=== PATIENT | female | born 1940 | race Caucasian/White ===

== ENCOUNTER → 2016-04-15 | Outpatient (CLI) | payer OTHER ==
[~2016-04-15] MED LIST: ASPIRIN81 M2 PO; B COMPLEX1 EACH PO; B-12250 MCG PO; BROMELAINS500 MG PO; CALCIUM AND MA1 EACH PO; COQ-10100 MG PO; COUMADIN; DESONIDE CR. 1515 GM TOP; DESOWEN60 GM; DIGESTIVE ENZY1 EAC2 PO; DIGESTIVE ENZY1 EAC3 PO; DURAGESIC25 MCG/HR TP; ELIQUIS5 MG PO; ESSENTIAL WOMA1 EACH PO; ESTRACE; ESTRACE CREAM; FENTANYL PA12 MCG/HR TP; FENTANYL PA25 MCG/HR TRANSDERM; FISH OIL 1,001000 M2 PO; FLONASE 0.05%50 MCG NASAL; HYDROCODON-ACE1 EAC5 PO; IRON PO; LUTEIN20 MG PO; MACA ROOT PO; MAGOX 400400 MG PO; METOPROLOL SUCC50 MG PO; MUCINEX TA600 MG/TA2 PO; MULTIVITAMINS1 EAC7 PO; NORCO 10-325 T1 EACH PO; NORCO 5-325 TA1 EACH PO; OCUVITE TABLET1 EAC1 PO; PACERONE 200 M200 M1 PO; PRADAXA150 MG PO; PRESERVISION A1 EACH PO; PROLIA60 MG/1 ML SUBQ; PROSIGHT TABLE1 EACH PO; PROTONIX40 M1 PO; TIKOSYN0.25 MG; TOPROL XL25 MG PO; TRIAMCINOLONE A80 G2 TOP; TUMS PO; UNICOMPLEX M TA1 TA1 PO; VERAMYST10 GM NS; VITAMIN D2000 UNI1 PO; ZANTAC 150MG T150 MG PO; ZYRTEC10 M5 PO; [UNRECOGNIZED DRUG - OTHER] PO; [UNRECOGNIZED DRUG - OTHER] PO
--- NOTE | ~2016-04-15 | HPC ---
[facility] [address] [address] PAIN MANAGEMENT CONSULTATION Name: BLANKA CAMEJO Edu [id number] Admission: 04/15/16 Attend Phys: Rogelio Garza MD Discharge: Date of : 42 Report #: [id number] THIS REPORT FOR: //name// CC: Jadon Garza DATE OF SERVICE: 04/15/2016 Followup visit for chronic low back pain and lumbar radiculopathy. The patient returns to pain clinic for renewal of her medication. Most of her pain is in the axial spine in the area where she has had previous compression fractures at T10, T11 and T12. She has kyphotic changes there with angulation primarily at T11 and T12. She complains of increasing pain in that location. Pain in her legs is better. She has been managing with pain medication, which she says has really been quite effective over the last several months. Pain score is a 3, which is as low as it has been. She has been doing some physical therapy three times a week at [facility] where she lives and I think this is certainly playing a role in her improvement. Medications do cause some constipation, which she treats with a stool softener and laxative. Comorbidities include chronic atrial fibrillation and hyperlipidemia. ALLERGIES: Are lengthy and noted on the electronic medical record. PHYSICAL EXAMINATION: GENERAL: She is pleasant, affect is mildly depressed. VITAL SIGNS: Blood pressure is 135/88, heart rate is 80. MUSCULOSKELETAL: Examination of the spine reveals swelling over that spinous process of T12, but no redness. I believe this is likely due to pressure placed over the kyphotic angulation. She has no pain in her legs today. She walks easily without antalgic features and does not appear to be a fall risk. IMPRESSION: 1. Chronic back pain status post compression fractures at T11-T12 with kyphotic angulation. 2. Management of high risk medication. PLAN: I have renewed her fentanyl patches which she uses at q. 48 hours due to efficacy issues. She is on 25 mcg 15 patches per month. She uses hydrocodone 10/325, three times daily maximally for breakthrough pain. Important issues as far as safeguarding medication were reviewed in detail and [address] [address] PAIN MANAGEMENT CONSULTATION Name: BLANKA CAMEJO Room #: REG [facility].#: [id number] Admission: 04/15/16 Attend Phys: Rogelio Garza MD Discharge: Date of : 42 Report #: [id number] the terms of our opioid agreement were reviewed. Followup visit is scheduled in 3 months. <ELECTRONICALLY SIGNED> By: Rogelio Garza MD 05/16/16 1130 [id number] Rogelio Garza MD /nt
== END | disposition home or self-care (01) ==
LOC: PAIN 07:07
DX: M54.16 Radiculopathy, lumbar region (principal); G89.29 Other chronic pain; S22.080G Wedge compression fracture of T11-T12 vertebra, subsequent encounter for fracture with delayed healing; I48.91 Unspecified atrial fibrillation; E78.5 Hyperlipidemia, unspecified; Y93.89 Activity, other specified; Y92.89 Other specified places as the place of occurrence of the external cause; Y99.8 Other external cause status

== ENCOUNTER → 2016-07-20 | Outpatient (CLI) | payer OTHER ==
[~2016-07-20] VITALS: Ht 167.6 cm; Wt 59.4 kg
--- NOTE | ~2016-07-20 | HPC ---
[facility] [address] [place] [address] PAIN MANAGEMENT CONSULTATION Name: BASHIRBLANKA Edu Room #: REG MANDY Delgado#: [id number] Admission: 07/20/16 Attend Phys: Rogelio Garza MD Discharge: Date of : 42 Report #: [id number] THIS REPORT FOR: //name// CC: Jadon Garza DATE OF SERVICE: 07/20/2016 DATE OF REGISTRATION: 07/20/2016. REASON FOR VISIT: Followup visit for intractable low back pain with radiculopathy. SUBJECTIVE: I am seeing the patient today in followup. She has been on the same medications through our clinic for quite some time. She uses Duragesic 25 mcg patches, changed every 2 days and this has worked well for her. She has hydrocodone for breakthrough pain but uses it less frequently and still has quite a few pills remaining in her current bottle pill. She would like renewal of her fentanyl patches. Her only medication side effect is constipation, which treats aggressively. She avoids it with stool softeners and laxatives. She says her pain has been a little bit better here recently. It has only increased when she overdoes it. She understands when that occurs. She is also on board with exercise and understands that it can provide substantial improvements in her long-term pain. Comorbidities include atrial fib, hyperlipidemia, and cataracts. PHYSICAL EXAMINATION: GENERAL: She is a pleasant 76-year-old moves easily from sitting to standing position, ambulates only with mild discomfort. She has tenderness across her low back and mid back, but it is very mild. VITAL SIGNS: Blood pressure 154/82, heart rate is 72, BMI is 21.2. IMPRESSION: 1. Chronic back pain following compression fractures. 2. Kyphosis and spondylosis. 3. Management of high risk medication. DISCUSSION AND PLAN: We reviewed the CDC guidelines. I have reminded her of our opioid agreement and importance of safeguarding all medications. [facility] [address] [place] [address] PAIN MANAGEMENT CONSULTATION Name: BLANKA CAMEJO Room #: [facility].#: [id number] Admission: 07/20/16 Attend Phys: Rogelio Garza MD Discharge: Date of : 42 Report #: [id number] Medications were renewed under terms of that agreement. I plan to see her back in the clinic in 3 months. By: [id number] Rogelio Garza MD /nt
[2016-07-20 14:02] VITALS: BP 154/82
== END | disposition home or self-care (01) ==
LOC: PAIN
DX: M47.9 Spondylosis, unspecified (principal); M40.209 Unspecified kyphosis, site unspecified; G89.29 Other chronic pain

== ENCOUNTER → 2016-10-07 | Outpatient (CLI) | payer OTHER ==
[~2016-10-07] VITALS: Ht 167.6 cm; Wt 59.8 kg
[2016-10-07 14:38] VITALS: BP 157/59
== END ==
LOC: PAIN 07:15
DX: M54.5 Low back pain (principal); M47.896 Other spondylosis, lumbar region; Z79.899 Other long term (current) drug therapy; Z79.891 Long term (current) use of opiate analgesic

== ENCOUNTER → 2016-12-31 | Outpatient (CLI) | payer OTHER ==
[~2016-12-31] VITALS: Ht 170.2 cm; Wt 58.5 kg
[~2016-12-31] MED LIST changes: +DURAGESIC25 MCG/HR TRANSDERM
--- NOTE | ~2016-12-31 | HPC ---
[facility] [address] [address] PAIN MANAGEMENT CONSULTATION Name: BLANKA CAMEJO Edu Room #: REG [facility] Dylan.#: [id number] Admission: 12/31/16 Attend Phys: Rogelio Garza MD Discharge: Date of : 42 Report #: [id number] THIS REPORT FOR: //name// CC: Jadon Garza DATE OF SERVICE: 12/31/2016 Followup visit for management of high risk medication and treatment of intractable pain. The patient returns to Pain Clinic today for medication. She has been on an opioid agreement through our clinic now for several years. She has shown no signs of addiction, misuse or abuse. She lives ____. She is very active there. She is able do all of her independent activities of daily living including driving, cleaning, shopping, showering, all personal hygiene. She goes to exercise class 4 times a week. She has recently done some physical therapy once again to learn special exercises to help her back and she feels that she has better as a result of them. Besides all of these general activities of wellness, she has found that the medication is critical to allowing her to do all of the things we have discussed. She was using fentanyl patches and changing them every 2 days, but is found that she is now able to stretch them out to 3 days, although she uses her breakthrough medication a little bit more aggressively on the 3rd day than she does on the first 2. She denies any side effects. Even constipation is not a problem for her. She has no cognitive side effects whatsoever and is able to function quite nicely in all of her cognitive activities. PHYSICAL EXAMINATION: She is pleasant, alert and oriented. No signs of overmedication. She moves from a sitting to standing position, ambulates fine. She has tenderness across her low back with no weakness noted. Her gait is strong. She does not appear to have a fall risk. IMPRESSION: 1. Chronic intractable low back pain. 2. Management of high risk medications under terms of an opioid agreement. She is on 2 separate medications, a long-term baseline opioid as well as breakthrough medicines. We will continue this. We have talked about the opioid crisis, which is in the news each day. We talked about CDC guidelines and she understands her current dosing. She understands the importance of safeguarding all medications and I plan to see her back in the Pain Clinic in 3 months. By: [id number] Rogelio Garza MD /nt
[2016-12-31 10:41] VITALS: BP 153/90
== END ==
LOC: PAIN 06:33
DX: M54.5 Low back pain (principal)

== ENCOUNTER → 2017-03-26 | Outpatient (CLI) | payer OTHER ==
[~2017-03-26] VITALS: Ht 170.2 cm; Wt 60.1 kg
[~2017-03-26] MED LIST changes: +BETA-VAL 0.1% O45 GM TOP; +CARVEDILOL6.25 MG; +COLACE100 MG PO; +Duragesic 25 mcg Pat TRANSDERM; +LASIX 20 MG TAB20 MG PO; +LISINOPRIL40 MG PO; +NYAMYC15 GM TOP; +[UNRECOGNIZED DRUG - CODE] PO
--- NOTE | ~2017-03-26 | HPC ---
[facility] [address] [place] [address] PAIN MANAGEMENT CONSULTATION Name: BASHIRBLANKA C Room #: REG MANDY Delgado#: [id number] Admission: 03/26/17 Attend Phys: Reid Ordonez DO Discharge: Date of : 42 Report #: [id number] THIS REPORT FOR: //name// CC: Jadon Ordonez PAIN CLINIC NOTE SUBJECTIVE: The patient is a very pleasant 76-year-old female typically treated by Dr. Rogelio Garza for chronic axial back pain requiring high risk complex medication management. She presents to the pain clinic today, she was a new patient to me, we spent a prolonged visit from 11:45-12:10. Greater than 50% of the 25-minute visit was spent counseling the patient. The patient tells me she has had chronic axial back pain since about 2009 when she was diagnosed with 3 vertebral compression fractures. She did have osteoplasty at that time. Currently, takes Prolia injections q. 6 months for osteoporosis. Her primary pain is low back with some radiation to the legs. She states she developed myalgias in her anterior thighs, which was started on Zocor many years ago. She stopped the Zocor, but the myalgias continued. She has subjective weakness in her legs (but she does note as a caveat that she is 77 years of age). The patient states she has chronic paresthesia in her feet. She denies specific bowel or bladder continence changes, though notes that she does have "some" bladder incontinence. She describes this as urgency and occasional leakage. The patient remains quite functional, she lives at [facility] and she does attend exercise classes 4 times a week. She was prescribed physical therapy this year for both strength and balance. She does continue to do the balance exercises. She rates her subjective pain score 3 on a VAS. PHYSICAL EXAMINATION: Reveals a 76-year-old woman, BMI is 20.8 kilograms per meter squared. Blood pressure 162/84, pulse is 73 and irregularly irregular, respirations are 16. Rises from chair using armrest. Modestly ataxic and antalgic gait, though lower extremity strength is symmetric. Diffuse lumbar pain. No discrete trigger points are noted. Medication list was reconciled including Eliquis, which she takes for atrial fibrillation. She prefers the Actavis branded Duragesic patch. She was changed from q. 48-72 hours in the last visit. She is on hydrocodone 10/325. On discussion with the patient, she states that she does have some untoward sedation during the day. She does note that it is related to the hydrocodone. She tells me she actually takes more like 75 tablets in 30 days. She takes [address] [address] PAIN MANAGEMENT CONSULTATION Name: BLANKA CAMEJO Room #: REG MANDY Delgado#: [id number] Admission: 03/26/17 Attend Phys: Reid Ordonez DO Discharge: Date of : 42 Report #: [id number] typically 2 and occasionally 3 a day. We talked today about using a half of a hydrocodone tablet if pain is mild to moderate and a full tablet if needed. We will decrease the number of tablets from 90-75. She does have a surplus of hydrocodone tablets, she in fact just filled a 90-tablet prescription for hydrocodone which she has with her in her purse today. She is on Pacerone (amiodarone) for rate control. As noted in the chief complaint, she uses Prolia 60 mg every 6 months for osteoporosis. She gets her injections in June and January. She takes multivitamins. We reviewed the fact that opiate medications are being used to provide analgesia adequate to support activities of daily living, not attempting to achieve a specific pain score on the 0-10 Visual Analog Scale. The current opiate medications are providing sufficient analgesia to allow the patient to participate in activities of daily living. The patient is not exhibiting any aberrant behavior suggestive of drug diversion. The patient is not having any adverse reactions to medications. The patient is not suffering from daytime somnolence or mental acuity changes. The patient is managing opiate-induced constipation with appropriate prjg-krr-agjmrbv agents and dietary considerations. The patient was counseled on concern for caution with operating a motor vehicle while using opiate medications. A physical exam was performed and the patient's functional status was evaluated. All patients with back pain were advised against the bed rest greater than 4 days and were advised to return to normal activities. Pain score assessment was noted and the treatment plan was reviewed with the patient. All current medications, both prescribed and OTC were reviewed and reconciled on the electronic medical record. Tobacco screening was accomplished and smoking cessation was advised when indicated. BMI was noted and diet/exercise modification was recommended for all patients following outside normal parameters. I reviewed with the patient today their responsibilities to safeguard prescription medications, reviewed their responsibility to utilize medications only as prescribed by the physician. They are to seek and receive pain medications only from 1 physician group ( [facility]). They are to use 1 pharmacy and keep the clinic informed if they change pharmacies. Their responsibilities include making followup visits in a timely fashion and to avoid abrupt discontinuation of medication usage. Their responsibilities further include bringing their medications (bottles from the pharmacy with residual pills) to the visit for possible confirmation of pill counts and the patient understands it is their responsibility to submit to random drug screens to ensure both that the medications prescribed are present, and that no other controlled substances are present. All prescriptions provided today were generated electronically. ASSESSMENT: Chronic axial back pain status post vertebral compression fractures requiring high risk complex medication management. RECOMMENDATIONS: [address] [address] PAIN MANAGEMENT CONSULTATION Name: BLANKA CAMEJO Room #: REG [facility].#: [id number] Admission: 03/26/17 Attend Phys: Reid Ordonez DO Discharge: Date of : 42 Report #: [id number] 1. Renew Duragesic 25 mcg q. 72 hours. I have taken the liberty of writing for the Actavis branded patches to be released today 4 weeks and 8 weeks. 2. Hydrocodone 10/325. Again, the patient just filled a 90-tablet prescription today. I did provide to her prescriptions to release in 4 weeks and 8 weeks for hydrocodone 10/325, #75. Directions one half to one tablet t.i.d. as needed for breakthrough pain with acknowledge the patient typically takes 2-3 tablets a day and uses 75 tablets for 30 days. The patient discharged in good stable condition. Follow up with Dr. Rogelio Garza in 3 months. <ELECTRONICALLY SIGNED> By: Reid Ordonez DO 04/08/17 0913 1217 T: 12/2113 Reid Ordonez, DO /nt
[2017-03-26 11:29] VITALS: BP 162/84
== END ==
LOC: PAIN 07:45
DX: M54.89 Other dorsalgia (principal); Z79.899 Other long term (current) drug therapy

== ENCOUNTER → 2017-06-30 | Outpatient (CLI) | payer OTHER ==
[~2017-06-30] VITALS: Ht 170.2 cm; Wt 63.0 kg
[~2017-06-30] MED LIST changes: -BETA-VAL 0.1% O45 GM TOP; -COLACE100 MG PO; -Duragesic 25 mcg Pat TRANSDERM; -LASIX 20 MG TAB20 MG PO; -NYAMYC15 GM TOP; -[UNRECOGNIZED DRUG - CODE] PO
--- NOTE | ~2017-06-30 | HPC ---
[facility] [address] [address] PAIN MANAGEMENT CONSULTATION Name: BLANKA CAMEJO Edu Room #: REG Faye Delgado#: [id number] Admission: 06/30/17 Attend Phys: Denzel Carmona MD Discharge: Date of : 42 Report #: [id number] THIS REPORT FOR: //name// CC: Jadon Carmona DATE OF SERVICE: 06/30/2017 FOLLOWUP COMPLAINT: Here for medication renewal. FOLLOWUP HISTORY: The patient is a 77-year-old female, who has been treated by Dr. Rogelio Garza for chronic axial pain, requiring high-risk medication management. She states that her pain is helped with use of her current medical regimen. She is having no complications from it. She finds that the fentanyl and hydrocodone are working reasonably well. She is keeping her medications in a guarded area. She is aware of the possible complications of opioid use. She has been seeing it on the news. She is aware of that dependency and tolerance can occur. At this juncture, she does not feel that is causing problem for her. This medicine helps her to continue to engage in activities of daily living. She has had chronic axial pain since 2009, when she was diagnosed with 3 vertebral compression fractures. She did have osteoplasty at that time. She takes Prolia injections for osteoporosis. She does have some pain in her low back and some pain that radiates down into her legs. She had some myalgias in the anterior thigh area, that was after using Zocor. She still has myalgias even after the discontinuation of the Zocor. Continues to have some subjective weakness of her legs. She has some chronic paresthesias in her legs and feet. Denies any real change in bowel or bladder dysfunction. She remains functional. She lives at [facility] and does attend exercise classes 4 times a week. She describes physical therapy, which has helped with balance and strength. She rates her pain today as a 3/10. ALLERGIES: CIPROFLOXACIN, SOTALOL, LIPITOR, PENICILLIN, NAPROSYN, TETRACYCLINE, BACTRIM, SIMVASTATIN, GABAPENTIN, CYMBALTA, ZETIA, NITROFURANTOIN. CURRENT MEDICATIONS: Lisinopril 40 mg, carvedilol 6.5 mg b.i.d., hydrocodone 10/325 q. 8 hours p.r.n. pain, fentanyl 25 mcg patch q. 72 hours, Eliquis 5 mg b.i.d., iron, Zyrtec 10 mg daily, Protonix 40 mg daily, Pacerone 200 mg daily, testosterone cream topical, vitamin B complex, Prolia 60 subq, fish oil, multivitamin, zinc, CoQ10. PHYSICAL EXAMINATION: GENERAL: The patient is a well-developed 77-year-old female, appears her stated age. ORIENTATION: The patient is alert and oriented x 3. Affect appears appropriate. Rises from her chair using armrest. [address] [address] PAIN MANAGEMENT CONSULTATION Name: BASHIRBLANKA Edu Room #: REG MANDY Delgado#: [id number] Admission: 06/30/17 Attend Phys: Denzel Carmona MD Discharge: Date of : 42 Report #: [id number] MUSCULOSKELETAL: Slightly ataxic and antalgic gait. Diffuse lumbar pain. PAIN CLINIC ASSESSMENT: 1. History of osteoarthritis. 2. Height 5 feet 7 inches, weight 139 pounds, BMI is 28. 3. Vital signs: Blood pressure 145/62, pulse 63, respiratory rate 14, room air saturation 99. 4. Intensity of pain: 3/10 5. Fall risk: The patient has not fallen in the last 3 months. 6. Blood thinner: The patient is on Eliquis. 7. History of hypertension and atrial fibrillation. 8. Opioid therapy greater than 6 weeks: The patient is on a contract with the Pain Clinic and receives her medications only from the Pain Clinic. 9. Risk assessment: Low. 10. Functional assessment: . 11. Recreational drug use: Never. 12. Tobacco use: Never. 13. Alcohol use: Never. IMPRESSION: 1. Chronic intractable low back pain. 2. Management of pain with high-risk medications under terms of opioid agreement. 3. Kyphosis with spondylosis. 4. History of compression fractures. 5. Chronic atrial fibrillation. RECOMMENDATIONS: We discussed treatment options with the patient. At this juncture, we will continue with her current medical regimen. She finds that her medications are working well. She is having no problem with them. She will continue to use the medications as prescribed. She will keep her medications in a guarded area. She is aware of the possible complications of opioid therapy, it has been on the news and in the papers. She is aware of the possibility of addiction as well as because of development of tolerance, can cause less effective pain relief. She will call us if she has any problem with her medications. Her medications have been dispensed, fentanyl patches 25 mcg q. 72 hours and hydrocodone 10/325 one p.o. t.i.d. By: [id number] Denzel Carmona MD /ross
[2017-06-30 13:14] VITALS: BP 145/62
== END ==
LOC: PAIN 07:09
DX: G89.29 Other chronic pain (principal); M54.5 Low back pain; M40.299 Other kyphosis, site unspecified; I48.91 Unspecified atrial fibrillation; Z79.899 Other long term (current) drug therapy

== ENCOUNTER → 2017-09-27 | Outpatient (CLI) | payer OTHER ==
[~2017-09-27] VITALS: Ht 170.2 cm; Wt 62.1 kg
[~2017-09-27] MED LIST changes: +BETA-VAL 0.1% O45 GM TOP; +COLACE100 MG PO; +NYAMYC15 GM TOP; +[UNRECOGNIZED DRUG - CODE] PO
--- NOTE | ~2017-09-27 | HPC ---
[facility] [address] [place] [address] PAIN MANAGEMENT CONSULTATION Name: BLANKA CAMEJO Edu Room #: REG [facility] Dylan.#: [id number] Admission: 09/27/17 Attend Phys: Rogelio Garza MD Discharge: Date of : 42 Report #: [id number] THIS REPORT FOR: //name// CC: Jadon Garza DATE OF SERVICE: 09/27/2017 REASON FOR VISIT: Followup visit for chronic low back pain. HISTORY OF PRESENT ILLNESS: The patient saw my partner, Dr. Wes Carmona last month and the prior month. Prior to that, she saw Dr. Reid Ordonez in April. I have not seen her since 12/31/2016. She has chronic pain that she has managed for many years with low dose opioid medication. She has found this to be helpful. Over the course of the last year, we have gradually increased her medication to allow her to remain active and functional at [facility] [place]. She and her live in their own house. She is able to provide for her , and does the cooking. She describes her pain as intensity of 4/10 with medication and pain begins in her back and radiates down into her legs posteriorly and superiorly to her mid thoracic region bilaterally. It is diffuse tenderness and aching. She is not a candidate for injections and has responded poorly in the past, which has left us with medication management. She is also on a blood thinner. PQRS review shows no history of significant arthritis. Most of her pain is lumbar spondylosis with radiculopathy. She is a lean mobile woman with a BMI of 21.5. She has never been treated for hypertension and is not a fall risk. She has completed an opioid risk tool and is at low risk for addiction. She scores vary well on her functional assessment tool at 19/70. She has completed an opioid agreement. She does not smoke nor drink. IMPRESSION: 1. Chronic back pain with spondylosis and radiculopathy. 2. Management of high risk medications. PLAN: I will continue her on her current dose of fentanyl, which is 25 mcg patch q. 72 hours and she is allowed to take 2-3 hydrocodone a day for [address] [address] PAIN MANAGEMENT CONSULTATION Name: BLANKA CAMEJO Room #: REG [facility].#: [id number] Admission: 09/27/17 Attend Phys: Rogelio Garza MD Discharge: Date of : 42 Report #: [id number] activities and breakthrough provided 75 tablets per month. Her MME calculates below 90. A followup visit is scheduled in 3 months. By: [id number] Rogelio Garza MD /nt
[2017-09-27 14:07] VITALS: BP 151/73
== END ==
LOC: PAIN 06:46
DX: Z09 Encounter for follow-up examination after completed treatment for conditions other than malignant neoplasm (principal); M47.26 Other spondylosis with radiculopathy, lumbar region; Z79.899 Other long term (current) drug therapy

== ENCOUNTER → 2018-03-30 | Outpatient (CLI) | payer OTHER ==
[~2018-03-30] VITALS: Ht 170.2 cm; Wt 59.6 kg
[~2018-03-30] MED LIST changes: +DURAGESIC1 EAC4 TRANSDERM; +Duragesic 25 mcg Pat TRANSDERM; +LASIX 20 MG TAB20 MG PO
--- NOTE | ~2018-03-30 | HPC ---
[facility] [place] [address] PAIN MANAGEMENT CONSULTATION Name: BLANKA CAMEJO Edu Room #: REG Faye Delgado#: [id number] Admission: 03/30/18 Attend Phys: Erin Patel Discharge: Date of : 42 Report #: [id number] THIS REPORT FOR: //name// CC: Erin Hong DATE OF SERVICE: 03/30/2018 CHIEF COMPLAINT: Chronic low back pain. HISTORY OF PRESENT ILLNESS: This is a 77-year-old female who complains of pain in her lower back, thighs, and legs and occasionally in her feet. She rates her pain score of 3-4 of a constant numbing, shooting pain, worse with activity and exercise, but the medicine is very helpful. She denies any constipation or daytime sleepiness. She does take a scheduled nap every day. She tells me that she forgot to change her fentanyl patch last week one day and she noticed a significant increase in her pain. She said "my pain had been really very well under control until I did that" and she realized how much her pain medicines are helping her. She would like a refill of them today. ALLERGIES: Please see the chart for a list of an extensive list. CURRENT MEDICATIONS: Fentanyl patch 25 mcg every 3 days, hydrocodone 10/325, 2-3 times a day, Lasix 20 mg daily, Flonase daily, lisinopril 40 mg daily, Eliquis 5 mg twice a day, Zyrtec 10 mg daily, Protonix 40 mg daily, amiodarone 200 mg daily, Prolia twice a year, fish oil daily, multivitamin daily and CoQ10 daily. PQRS: The patient does have osteoarthritis and denies rheumatoid arthritis. Her arthritis is in her back. Height is 5 feet 7 inches, weight is 131 and BMI is 20. Vital signs 185/65, pulse is 58, respirations 16, oxygen sat 98, pain score is 3/4 or 4/10. Denies dizziness, has not fallen in the last 3 months and does not need help walking or standing. She is on a blood thinner of Eliquis. She denies any history of hypertension. Her opiate therapy is greater than 6 weeks; therefore, an opioid contract is on the chart. Risk assessment tool is low and her functional assessment is 19/70. The patient denies recreational drug use. She does not smoke and does not drink alcohol. We checked the prescription monitoring system. The patient is filling appropriately her medicines and is due to fill them today. We have not checked a urine drug screen for a while, so we will place a note on the chart for that to be checked in the next scheduled appointment. The patient tells me she does safeguard her medications. PHYSICAL EXAMINATION: GENERAL: This is a well-developed white female. She appears her stated age, alert and orientated [place] [address] PAIN MANAGEMENT CONSULTATION Name: BASHIRBLANKA Edu Room #: REG MANDY Delgado#: [id number] Admission: 03/30/18 Attend Phys: Erin Patel Discharge: Date of : 42 Report #: [id number] HEENT: Normocephalic, atraumatic. Extraocular eye muscles are intact. Mucous membranes are moist. Affect is slightly flat. NECK: No JVD or adenopathy. Range of motion is appropriate. MUSCULOSKELETAL: The patient uses an armrest to raise from sitting to standing position. Complains of weakness as well as diffuse lumbar pain. Lower extremity strength judged to be 4/5 symmetrical in all major muscle groups. IMPRESSION: 1. Chronic intractable pain involving the low back. 2. Management of chronic pain with high risk medications including opioids. 3. Kyphosis with spondylosis. 4. History of compression fractures. 5. Chronic atrial fibrillation, on anticoagulation. We reviewed the fact that opiate medications are being used to provide analgesia adequate to support activities of daily living, not attempting to achieve a specific pain score on the 0-10 Visual Analog Scale. The current opiate medications are providing sufficient analgesia to allow the patient to participate in activities of daily living. The patient is not exhibiting any aberrant behavior suggestive of drug diversion. The patient is not having any adverse reactions to medications. The patient is not suffering from daytime somnolence or mental acuity changes. The patient is managing opiate-induced constipation with appropriate sbbs-hxr-jpyvxbg agents and dietary considerations. The patient was counseled on concern for caution with operating a motor vehicle while using opiate medications. A physical exam was performed and the patient's functional status was evaluated. All patients with back pain were advised against the bed rest greater than 4 days and were advised to return to normal activities. Pain score assessment was noted and the treatment plan was reviewed with the patient. All current medications, both prescribed and OTC were reviewed and reconciled on the electronic medical record. Tobacco screening was accomplished and smoking cessation was advised when indicated. BMI was noted and diet/exercise modification was recommended for all patients following outside normal parameters. I reviewed with the patient today their responsibilities to safeguard prescription medications, reviewed their responsibility to utilize medications only as prescribed by the physician. They are to seek and receive pain medications only from 1 physician group ([facility]). They are to use 1 pharmacy and keep the clinic informed if they change pharmacies. Their responsibilities include making followup visits in a timely fashion and to avoid abrupt discontinuation of medication usage. Their responsibilities further include bringing their medications (bottles from the pharmacy with residual pills) to the visit for possible confirmation of pill counts and the patient understands it is their responsibility to submit to random drug screens to [address] [address] PAIN MANAGEMENT CONSULTATION Name: BLANKA CAMEJO Room #: REG [facility]..#: [id number] Admission: 03/30/18 Attend Phys: Erin Patel Discharge: Date of : 42 Report #: [id number] ensure both that the medications prescribed are present, and that no other controlled substances are present. All prescriptions provided today were generated electronically. PLAN: 1. We discussed treatment options with the patient today. The patient tells me that she has been very well controlled lately with her fentanyl patch and hydrocodone. She did forget to change her patch and notices a significant increase the next day without her medication. The patient asked at one point if we could give her 3 pills of hydrocodone a day. I reminded her of the CDC guidelines that we need to keep people at 90 MME or below and the patient falls right at that currently with her current pain regimen. The patient understands. She tells me that her pain really is doing quite well. 2. Script was given today for Duragesic 25 mcg patch, quantity of 10 to be released today for an 8-week. Next medication is hydrocodone 10/325, #75. The patient is to take 2-3 times a day, scripts for today for an 8-week release. The patient understands the plan of care and will be seen in followup in 3-month time frame. Care given today under collaboration with Dr. Carmona. <ELECTRONICALLY SIGNED> By: Erin Patel 03/31/18 [id number] [id number] Erin Patel /nt
[2018-03-30 12:28] VITALS: BP 185/65
== END ==
LOC: PAIN 03-25 11:59
DX: M54.5 Low back pain (principal); G89.4 Chronic pain syndrome; M40.299 Other kyphosis, site unspecified; I48.91 Unspecified atrial fibrillation; M47.896 Other spondylosis, lumbar region; Z79.891 Long term (current) use of opiate analgesic; Z87.81 Personal history of (healed) traumatic fracture

== ENCOUNTER → 2018-06-27 | Outpatient (CLI) | payer OTHER ==
[~2018-06-27] VITALS: Ht 170.2 cm; Wt 57.6 kg
[~2018-06-27] MED LIST changes: +HYDROCODON-ACE1 EAC8 PO
[2018-06-27 11:15] VITALS: BP 103/53
--- NOTE | 2018-06-27 11:44 | NUR ---
Pain Clinic Assessment: 1. History of Osteoarthritis: Not Applicable History of Rheumatoid Arthritis: Not Applicable 2. Height: 5 ft. 7 in. 170.2 cm. Weight: 127.0 lb. oz. 57.607 kg. Patient's BMI: 19.9 3. Vital Signs: BP: 103/53 Pulse: 66 Resp: 14 Temp: 02 Sat: 100 ECG Mon: 4. Pain Intensity: 4 5. Fall Risk: Dizziness: Y Needs help standing or walking: N Fallen in the last 3 months: Y Fall risk comments: 6. Patient on Blood Thinner: ELIQUIS 7. History of Hypertension: N 8. Opioid Therapy greater than 6 weeks: Y Opiate Contract Signed: 10/02/15 9. Risk Assessment Tool Provided: LOW 10. Functional Assessment Tool: 11. Recreational Drug Use: Never Drug Type: Tobacco Use: Never Smoker Tobacco Type: Amount or Packs/day: How Many Years: Alcohol Use: No Frequency: Quant:
--- NOTE | 2018-06-28 08:11 | HPC ---
Former[facility] [address] [address] PAIN MANAGEMENT CONSULTATION Name: BLANKA CAMEJO Edu Room #: REG [facility] Dylan.#: [id number] Admission: 06/27/18 ������������������ Attend Phys: Erin Patel Discharge: ������������������ Date of : 42 Report #: [id number] THIS REPORT FOR: //name// CC: Erin Hong DATE OF SERVICE: 06/27/2018 CHIEF COMPLAINT: Chronic low back pain. HISTORY OF PRESENT ILLNESS: This is a very pleasant 78-year-old female who returns to the pain clinic today for a refill of her medications for her ongoing low back pain, bilateral thigh pain and leg pain. She tells me that her pain score today is 4/10, worse with standing; exercise and her medication find it very helpful. She tells me she does not have any problems with constipation. She does have some daytime sleepiness and thinks that maybe she is on too much medication. She currently takes fentanyl patches 25 mcg a day and hydrocodone 10/325 2-3 times a day. The patient would like a refill of her medications today. ALLERGIES: PLEASE SEE HER EXTENSIVE LIST OF CIPRO, LIPITOR, PENICILLIN, NITROFURANTOIN, NAPROXEN, TETRACYCLINE, BACTRIM, SIMVASTATIN, GABAPENTIN, ZYMAR, DULOXETINE, ZETIA. CURRENT LIST OF MEDICATIONS: Hydrocodone 10/325 2-3 times a day, Duragesic patch 25 mcg daily, Flonase as needed, Zestril 40 mg daily, Eliquis 5 mg b.i.d., Zyrtec 10 mg daily, Protonix 40 mg daily, Pacerone 200 mg daily, Prolia twice a year, fish oil 1000 mg daily, multivitamin daily and CoQ10. PQRS: 1. She does have osteoarthritis in her lower back. She denies rheumatoid arthritis. 2. Height is 5 feet 7 inches, weight is 127, BMI is 19.9. Vital signs: Blood pressure 103/57, pulse is 66, respirations 14, oxygen level 100. 3. Pain score 4/10. 4. Fall risk. Complains of some dizziness and does not need any help walking or standing. She has not fallen in the last 3 months. 5. The patient is on Eliquis. She does not take any medicines for hypertension. 6. Opioid therapy is greater than 6 weeks; therefore, an opioid contract is on the chart. 7. Risk assessment tool is low. Functional assessment is 70. 8. Recreational drug use: She denies. She is not a smoker and does not drink alcohol. We did check the prescription monitoring system. The patient is filling appropriately from her medications. She is due for her medications today. Her last prescription was filled at the very end of April. We will [address] [address] PAIN MANAGEMENT CONSULTATION Name: BLANKA CAMEJO Room #: REG CL Danny#: [id number] Admission: 06/27/18 ������������������ Attend Phys: Erin Patel Discharge: ������������������ Date of : 42 Report #: [id number] check a urine specimen for a drug screen on this patient today since it has been greater than 1 year since her last check. PHYSICAL EXAMINATION: GENERAL: This is a well-developed, well-nourished, well-hydrated 78-year-old female who appears her stated age. HEENT: Normocephalic, atraumatic. Extraocular eye muscles are intact. Mucous membranes are moist. Her affect is flat. NECK: No JVD or adenopathy. MUSCULOSKELETAL: The patient is able to move from sitting to standing using the arm chair to help raise herself. She walks with a slightly antalgic gait. Her lower extremity strength judged to be 4/5 in all major muscle groups. ASSESSMENT: 1. Chronic intractable pain involving her lower back. 2. Management of chronic pain with high risk medications under the terms of written opioid agreement. 3. Kyphosis with spondylosis. 4. History of compression fracture. 5. Chronic atrial fibrillation, on anticoagulation therapy. We reviewed the fact that opiate medications are being used to provide analgesia adequate to support activities of daily living, not attempting to achieve a specific pain score on the 0-10 Visual Analog Scale. The current opiate medications are providing sufficient analgesia to allow the patient to participate in activities of daily living. The patient is not exhibiting any aberrant behavior suggestive of drug diversion. The patient is not having any adverse reactions to medications. The patient is not suffering from daytime somnolence or mental acuity changes. The patient is managing opiate-induced constipation with appropriate nwrf-tsk-iumgrio agents and dietary considerations. The patient was counseled on concern for caution with operating a motor vehicle while using opiate medications. A physical exam was performed and the patient's functional status was evaluated. All patients with back pain were advised against the bed rest greater than 4 days and were advised to return to normal activities. Pain score assessment was noted and the treatment plan was reviewed with the patient. All current medications, both prescribed and OTC were reviewed and reconciled on the electronic medical record. Tobacco screening was accomplished and smoking cessation was advised when indicated. BMI was noted and diet/exercise modification was recommended for all patients following outside normal parameters. I reviewed with the patient today their responsibilities to safeguard prescription medications, reviewed their responsibility to utilize medications only as prescribed by the physician. They are to seek and receive pain [address] [address] PAIN MANAGEMENT CONSULTATION Name: BLANKA CAMEJO Room #: REG [facility]#: [id number] Admission: 06/27/18 ������������������ Attend Phys: Erin ANAHI Jorge Discharge: ������������������ Date of : 42 Report #: [id number] medications only from [facility] physician group ( [facility]). They are to use 1 pharmacy and keep the clinic informed if they change pharmacies. Their responsibilities include making followup visits in a timely fashion and to avoid abrupt discontinuation of medication usage. Their responsibilities further include bringing their medications (bottles from the pharmacy with residual pills) to the visit for possible confirmation of pill counts and the patient understands it is their responsibility to submit to random drug screens to ensure both that the medications prescribed are present, and that no other controlled substances are present. All prescriptions provided today were generated electronically. PLAN: 1. We discussed treatment options with the patient today. The patient tells me that she does have some daytime sleepiness and feels kind of groggy at times. She had currently been on Duragesic patch 25 mcg and hydrocodone 10/325. I was going to discuss decreasing her per the CDC guidelines down slightly on her medications, but then she brought up this somnolence, so therefore we will decrease her hydrocodone to 7.5 mg today. This will bring the patient down slightly from her MME of 90 to 78. The patient verbalizes understanding. 2. We did talk about placement of her fentanyl patch; to wear it slightly above on her chest, not on her breast, but not over her collarbone. The patient will adjust her patch when she feels the next script and places it for her next due patch. The patient also discussed wanting to eventually wean off all of her medicines. I did tell her that in the future, we could decrease her to a 12 mcg patch and see how she does with that. We would not make 2 changes at one time since we had already decreased her short-acting dosage. We will make that change only today. The patient verbalizes understanding. 3. We will check a urine drug screening for a random screen today with this patient. She will provide us with a sample. 4. Dr. Rogelio Garza did see this patient today and collaborated with care. She will follow up in 2 months' time period. ��������������������������������������������� <ELECTRONICALLY SIGNED> ���������������������������������������� By: Erin Patel ��������������������������������������������� 06/28/18 0811 [id number] Erin Patel /nt
== END ==
LOC: PAIN 06:56
DX: M47.816 Spondylosis without myelopathy or radiculopathy, lumbar region (principal); I48.2 Chronic atrial fibrillation; Z79.01 Long term (current) use of anticoagulants; Z79.891 Long term (current) use of opiate analgesic; Z79.899 Other long term (current) drug therapy; M40.299 Other kyphosis, site unspecified

== ENCOUNTER → 2018-08-22 | Outpatient (CLI) | payer OTHER ==
[~2018-08-22] VITALS: Ht 170.2 cm; Wt 60.4 kg
[~2018-08-22] MED LIST changes: +ASPERCREME 1141.7 GM; +IBUPROFEN 200200 M1 PO; +SALONPAS PATCH1 EAC1 TRANSDERM
[2018-08-22 09:20] VITALS: BP 124/56
--- NOTE | 2018-08-22 09:35 | NUR ---
Pain Clinic Assessment: 1. History of Osteoarthritis: Not Applicable History of Rheumatoid Arthritis: Not Applicable 2. Height: 5 ft. 7 in. 170.2 cm. Weight: 133.2 lb. oz. 60.419 kg. Patient's BMI: 20.9 3. Vital Signs: BP: 124/56 Pulse: 73 Resp: 14 Temp: 02 Sat: 99 ECG Mon: 4. Pain Intensity: 3-4 5. Fall Risk: Dizziness: N Needs help standing or walking: N Fallen in the last 3 months: N Fall risk comments: 6. Patient on Blood Thinner: JMIS 7. History of Hypertension: N 8. Opioid Therapy greater than 6 weeks: Y Opiate Contract Signed: 10/02/15 9. Risk Assessment Tool Provided: LOW 10. Functional Assessment Tool: 11. Recreational Drug Use: Never Drug Type: Tobacco Use: Never Smoker Tobacco Type: Amount or Packs/day: How Many Years: Alcohol Use: No Frequency: Quant:
--- NOTE | 2018-08-23 08:43 | HPC ---
[facility] [address] [place] [address] PAIN MANAGEMENT CONSULTATION Name: BASHIRBLANKA C Room #: REG MANDY Delgado#: [id number] Admission: 08/22/18 ������������������ Attend Phys: Erin Patel Discharge: ������������������ Date of : 42 Report #: [id number] THIS REPORT FOR: //name// CC: Erin Hong DATE OF SERVICE: 08/22/2018 CHIEF COMPLAINT: Chronic low back pain. HISTORY OF PRESENT ILLNESS: This is a very pleasant 78-year-old female who returns to the pain clinic today for refill of her medications that we use to treat her ongoing low back pain and bilateral thigh and leg pain. Today, she tells me her pain score is a 3/4 mostly in her low back and thighs. She tells me it is a constant numbness and shooting pain, worse with lying down, better with movement and her medications. She tells me today that she has been using Salonpas patches on her mid and low back. She does alternate those and she has been also using Aspercreme with lidocaine on her legs as well as occasional ibuprofen. She tells me this is because her pain medicine was decreased that her pain has increased slightly, but she does feel slightly more alert since her decrease of her hydrocodone strength last month, though she does still to have at times when she feels quite sleepy. She would like a refill of her fentanyl patch and her hydrocodone today. ALLERGIES: CIPRO, LIPITOR, PENICILLIN, NITROFURANTOIN, NAPROXEN, TETRACYCLINE, SULFA, SIMVASTATIN, GABAPENTIN, ZYMAR, CYMBALTA AND ZETIA. CURRENT MEDICATIONS: Salonpas patches daily, Aspercreme to legs daily, ibuprofen 200 mg 3 times a day, hydrocodone 7.5/325 two to three times a day, fentanyl patch 25 mcg every 72 hours, Lasix 20 mg daily, Flonase p.r.n., lisinopril 40 mg daily, Eliquis 5 mg b.i.d., Zyrtec 10 mg daily, Protonix 40 mg daily, amiodarone 200 mg daily, Prolia every 6 months, fish oil, multivitamin, and CoQ10. PQRS: 1. The patient does have osteoarthritis in her lower back. Denies any rheumatoid arthritis. 2. Height is 5 feet 7 inches, weight is 133, BMI is 20. 3. Vital signs: Blood pressure 124/56, pulse is 73, respirations 14, and oxygen sat is 99. 4. Pain score is 3-4. 5. Fall risk. Denies dizziness. Does not need help with walking or standing. She has not fallen in the last 3 months. 6. The patient is on Eliquis for blood thinner and does not take medicines for hypertension. 7. Opioid therapy is greater than 6 weeks; therefore, an opioid signed contract [address] [address] PAIN MANAGEMENT CONSULTATION Name: BLANKA CAMEJO [id number] Admission: 08/22/18 ������������������ Attend Phys: Erin Patel Discharge: ������������������ Date of : 42 Report #: [id number] is on the chart. 8. Risk assessment tool is low. Functional assessment is . 9. Recreational drug use, denies. Not a smoker and does not drink alcohol. We did check the prescription monitoring system. The patient is filling appropriately for her hydrocodone and her fentanyl and is due for those medications to be refilled today. We have a recent drug screen on the chart that is appropriate for her medications. PHYSICAL EXAMINATION: GENERAL: This is a well-developed, well-nourished, well-hydrated 78-year-old female who appears her stated age, placing her current pain score today at 3/4. HEENT: Normocephalic, atraumatic. Extraocular eye muscles are intact. Mucous membranes are moist. NECK: Without JVD or adenopathy. MUSCULOSKELETAL: The patient is able to move from sitting to standing using the armrest. She does walk with a slightly antalgic gait. Her lower extremity strength judged to be 4/5 in all major muscle groups. Complains of some discomfort in her bilateral thighs today. ASSESSMENT: 1. Chronic intractable pain involving her lower back. 2. Management of chronic pain with high-risk medications under terms of written opioid agreement. 3. Kyphosis with spondylosis. 4. History of compression fracture. 5. Chronic atrial fibrillation, on anticoagulation therapy. We reviewed the fact that opiate medications are being used to provide analgesia adequate to support activities of daily living, not attempting to achieve a specific pain score on the 0-10 Visual Analog Scale. The current opiate medications are providing sufficient analgesia to allow the patient to participate in activities of daily living. The patient is not exhibiting any aberrant behavior suggestive of drug diversion. The patient is not having any adverse reactions to medications. The patient is not suffering from daytime somnolence or mental acuity changes. The patient is managing opiate-induced constipation with appropriate oevd-aao-kqwsrex agents and dietary considerations. The patient was counseled on concern for caution with operating a motor vehicle while using opiate medications. A physical exam was performed and the patient's functional status was evaluated. All patients with back pain were advised against the bed rest greater than 4 days and were advised to return to normal activities. Pain score assessment was noted and the treatment plan was reviewed with the patient. All current medications, both prescribed and OTC were reviewed and reconciled on the electronic medical record. Tobacco screening was accomplished and smoking [facility] [address] [place] [address] PAIN MANAGEMENT CONSULTATION Name: BLANKA CAMEJO Room #: REG [facility].#: [id number] Admission: 08/22/18 ������������������ Attend Phys: Erin Patel Discharge: ������������������ Date of : 42 Report #: [id number] cessation was advised when indicated. BMI was noted and diet/exercise modification was recommended for all patients following outside normal parameters. I reviewed with the patient today their responsibilities to safeguard prescription medications, reviewed their responsibility to utilize medications only as prescribed by the physician. They are to seek and receive pain medications only from 1 physician group ( [facility]). They are to use 1 pharmacy and keep the clinic informed if they change pharmacies. Their responsibilities include making followup visits in a timely fashion and to avoid abrupt discontinuation of medication usage. Their responsibilities further include bringing their medications (bottles from the pharmacy with residual pills) to the visit for possible confirmation of pill counts and the patient understands it is their responsibility to submit to random drug screens to ensure both that the medications prescribed are present, and that no other controlled substances are present. All prescriptions provided today were generated electronically. PLAN: 1. We discussed treatment options with the patient today. The patient tells me that she feels that her sleepiness and daytime grogginess has gotten slightly better, though she still does complain of that at sometimes. She feels that since lowering her short-acting medications, it has improved slightly. She tells me she feels like she also has less constipation since we have decreased her medications. Refills given for her fentanyl patch 25 mcg every 3 days, #10 for release today and in 4 week and hydrocodone 7.5/325, #75 for release today and in 4 week. 2. I discussed with the patient that she should not use ibuprofen since she is on Eliquis, which is a blood thinner and we worry about the anti-inflammatory risk with blood thinners. I encouraged her to take Tylenol if she needs for any increased pain. I do not want her to have some bleeding that may occur with taking the NSAIDs with her blood thinner. The patient understands this risk and we will stop her minimal use of ibuprofen. 3. I explained to the patient that she can continue her Salonpas patches and her Aspercreme. Dr. Rogelio Garza did come and see the patient as well and told her that were both okay to continue to take. 4. The patient will return in 2 months' time period for appointment. Dr. Garza did see the patient and collaborated care. ��������������������������������������������� <ELECTRONICALLY SIGNED> ���������������������������������������� By: Erin Patel ��������������������������������������������� 08/23/18 [id number] Erin Patel /nt
== END ==
LOC: PAIN 06:41
DX: G89.29 Other chronic pain (principal); M47.816 Spondylosis without myelopathy or radiculopathy, lumbar region; Z88.8 Allergy status to other drugs, medicaments and biological substances; Z88.2 Allergy status to sulfonamides; Z88.0 Allergy status to penicillin; Z88.1 Allergy status to other antibiotic agents; Z79.899 Other long term (current) drug therapy; Z79.891 Long term (current) use of opiate analgesic

== ENCOUNTER → 2018-10-17 | Outpatient (CLI) | payer OTHER ==
[~2018-10-17] VITALS: Ht 170.2 cm; Wt 58.3 kg
[2018-10-17 13:03] VITALS: BP 147/65
--- NOTE | 2018-10-17 13:10 | NUR ---
Pain Clinic Assessment: 1. History of Osteoarthritis: Not Applicable History of Rheumatoid Arthritis: Not Applicable 2. Height: 5 ft. 7 in. 170.2 cm. Weight: 128.6 lb. oz. 58.332 kg. Patient's BMI: 20.1 3. Vital Signs: BP: 147/65 Pulse: 81 Resp: 14 Temp: 02 Sat: 98 ECG Mon: 4. Pain Intensity: 5-6 5. Fall Risk: Dizziness: N Needs help standing or walking: N Fallen in the last 3 months: N Fall risk comments: 6. Patient on Blood Thinner: JMIS 7. History of Hypertension: N 8. Opioid Therapy greater than 6 weeks: Y Opiate Contract Signed: 10/02/15 9. Risk Assessment Tool Provided: LOW 10. Functional Assessment Tool: 11. Recreational Drug Use: Never Drug Type: Tobacco Use: Never Smoker Tobacco Type: Amount or Packs/day: How Many Years: Alcohol Use: No Frequency: Quant:
--- NOTE | 2018-10-18 15:25 | HPC ---
[facility] [address] [address] PAIN MANAGEMENT CONSULTATION Name: BASHIRBLNAKA C Room #: REG MANDY Delgado#: [id number] Admission: 10/17/18 ������������������ Attend Phys: Erin Patel Discharge: ������������������ Date of : 42 Report #: [id number] THIS REPORT FOR: //name// CC: Erin Hong DATE OF SERVICE: 10/17/2018 CHIEF COMPLAINT: Chronic low back pain. HISTORY OF PRESENT ILLNESS: This is a very pleasant 78-year-old female, who returns to the Pain Clinic today for refill of her medications that she uses to help treat her ongoing low back pain and bilateral leg pain. She tells me that her pain score is a 5-6, mostly a constant, shooting, numb feeling. It is better with lying down occasionally, but also sometimes that does aggravate her pain. She tells me that she also uses Salonpas on her back and that feels very beneficial as well. She denies any problems with constipation. She occasionally does have diarrhea. She tells us she also feels that her fentanyl patch is not as effective on the third day as it is other days. She would like to go back to 3 hydrocodone a day, but she understands the CDC guidelines and knows she is allowed currently 2-1/2 pills a day of her breakthrough pain pills. ALLERGIES: CIPRO, LIPITOR, PENICILLIN, NITROFURANTOIN, NAPROXEN, TETRACYCLINE, BACTRIM, SIMVASTATIN, GABAPENTIN, ZYMAR, CYMBALTA AND ZETIA. CURRENT LIST OF MEDICATIONS: Hydrocodone 7.5 two p.r.n., fentanyl patch 25 mcg every 3 days, Salonpas, Aspercreme, Lasix, Flonase, lisinopril, Eliquis, Zyrtec, Prilosec, Pacerone, Prolia, fish oil, multivitamin, CoQ10, Tylenol Extra Strength. PQRS: 1. She does have arthritic changes in her lumbar spine. She denies any rheumatoid arthritis. 2. Height is 5 feet 7 inches, weight is 128, BMI is 20. 3. Vital signs 147/65, pulse is 81, respirations 14, and oxygen sat is 98. 4. Pain score is 5-6. 5. Fall risk. Denies dizziness, does not need help with walking or standing, has not fallen in the last 3 months. 6. The patient is on Eliquis. She does not take medicine for hypertension. 7. Opioid therapy is greater than 6 weeks. Therefore, an opioid signed contract is on the chart. Her risk assessment tool is low. Functional assessment is . 8. Recreational drug use, she denies. She is not a smoker and does not drink alcohol. We did check the prescription monitoring system[place] [address] PAIN MANAGEMENT CONSULTATION Name: BASHIRBLANKA Edu Room #: REG [facility].#: [id number] Admission: 10/17/18 ������������������ Attend Phys: Erin Patel Discharge: ������������������ Date of : 42 Report #: [id number] appropriately for her medications, only using one prescriber. She also has a urine drug screen on the chart that is appropriate for home medications as well. PHYSICAL EXAMINATION: GENERAL: This is a well-developed, well-nourished 78-year-old female who appears her stated age, placing her current pain score today at 5-6. HEENT: Normocephalic, atraumatic. Extraocular eye muscles are intact. Mucous membranes are moist. NECK: Without adenopathy or JVD. MUSCULOSKELETAL: The patient walks with a slightly antalgic gait. Her lower extremity strength judged to be 4/5 in all major muscle groups. Pain is located in the lower lumbar region that does radiate into her bilateral legs into her thighs. She is able to move from sitting to standing using the armrests. ASSESSMENT: 1. Chronic intractable pain involving her lower back. 2. Kyphosis with spondylosis. 3. History of compression fractures. 4. Chronic atrial fibrillation, on anticoagulation therapy. 5. Management of high-risk medications under terms of written opioid agreement. We reviewed the fact that opiate medications are being used to provide analgesia adequate to support activities of daily living, not attempting to achieve a specific pain score on the 0-10 Visual Analog Scale. The current opiate medications are providing sufficient analgesia to allow the patient to participate in activities of daily living. The patient is not exhibiting any aberrant behavior suggestive of drug diversion. The patient is not having any adverse reactions to medications. The patient is not suffering from daytime somnolence or mental acuity changes. The patient is managing opiate-induced constipation with appropriate [id number]-cidksvk agents and dietary considerations. The patient was counseled on concern for caution with operating a motor vehicle while using opiate medications. A physical exam was performed and the patient's functional status was evaluated. All patients with back pain were advised against the bed rest greater than 4 days and were advised to return to normal activities. Pain score assessment was noted and the treatment plan was reviewed with the patient. All current medications, both prescribed and OTC were reviewed and reconciled on the electronic medical record. Tobacco screening was accomplished and smoking cessation was advised when indicated. BMI was noted and diet/exercise modification was recommended for all patients following outside normal parameters. I reviewed with the patient today their responsibilities to safeguard prescription medications, reviewed their responsibility to utilize medications only as prescribed by the physician. They are to seek and receive pain [facility] [address] [place] [address] PAIN MANAGEMENT CONSULTATION Name: BLANKA CAMEJO [facility] [id number] Admission: 10/17/18 ������������������ Attend Phys: Erin Patel Discharge: ������������������ Date of : 42 Report #: [id number] medications only from 1 physician group ( [facility]). They are to use 1 pharmacy and keep the clinic informed if they change pharmacies. Their responsibilities include making followup visits in a timely fashion and to avoid abrupt discontinuation of medication usage. Their responsibilities further include bringing their medications (bottles from the pharmacy with residual pills) to the visit for possible confirmation of pill counts and the patient understands it is their responsibility to submit to random drug screens to ensure both that the medications prescribed are present, and that no other controlled substances are present. All prescriptions provided today were generated electronically. PLAN: 1. We discussed treatment options with the patient today. The patient feels that her pain is slightly increased since she has decreased her hydrocodone to 2-1/2 tablets a day, but she is more alert on these regieme, at times she tells me she wishes she had 3 tablets a day, especially on days that her fentanyl patch is due to be changed. I encouraged the patient to take 2 tablets of her breakthrough pain medicine a day and on the third day that her fentanyl patch is changed, to use 3 on that day. The patient verbalizes understanding and said that she will do a trial of that and see if it is beneficial. 2. Scripts given today for fentanyl 25 mcg patches, #10 for release today and 4 weeks and hydrocodone 7.5/325, #75 for release today and 4 weeks. 3. The patient seen in collaboration today with Dr. Rogelio Garza, who did see the patient as well. The patient made appointment for 2 months followup prior to leaving the clinic. ��������������������������������������������� <ELECTRONICALLY SIGNED> ���������������������������������������� By: Erin Patel ��������������������������������������������� 10/18/18 1525 [id number] Erin Patel /ross
== END ==
LOC: PAIN 09:00
DX: M47.816 Spondylosis without myelopathy or radiculopathy, lumbar region (principal); G89.4 Chronic pain syndrome; I48.91 Unspecified atrial fibrillation; Z79.01 Long term (current) use of anticoagulants; Z79.891 Long term (current) use of opiate analgesic; Z87.81 Personal history of (healed) traumatic fracture

== ENCOUNTER → 2018-12-12 | Outpatient (CLI) | payer OTHER ==
[~2018-12-12] VITALS: Ht 170.2 cm; Wt 58.2 kg
[2018-12-12 10:50] VITALS: BP 131/60
--- NOTE | 2018-12-12 11:05 | NUR ---
Pain Clinic Assessment: 1. History of Osteoarthritis: HANDS BACK KNEES History of Rheumatoid Arthritis: Not Applicable 2. Height: 5 ft. 7 in. 170.2 cm. Weight: 128.2 lb. oz. 58.151 kg. Patient's BMI: 20.1 3. Vital Signs: BP: 131/60 Pulse: 65 Resp: 14 Temp: 02 Sat: 97 ECG Mon: 4. Pain Intensity: 6 5. Fall Risk: Dizziness: N Needs help standing or walking: Y Fallen in the last 3 months: N Fall risk comments: 6. Patient on Blood Thinner: ELIQUIS 7. History of Hypertension: N 8. Opioid Therapy greater than 6 weeks: Y Opiate Contract Signed: 10/02/15 9. Risk Assessment Tool Provided: LOW RISK 0/3 10. Functional Assessment Tool: 11. Recreational Drug Use: Never Drug Type: Tobacco Use: Never Smoker Tobacco Type: Amount or Packs/day: How Many Years: Alcohol Use: No Frequency: Quant:
--- NOTE | 2018-12-13 10:33 | H ---
[facility] [employer] [place] [address] HISTORY AND PHYSICAL Name: BASHIRBLANKA Edu Room #: REG [facility] Danny#: [id number] Admission: 12/12/18 ������������������ Attend Phys: Erin Patel Discharge: ������������������ Date of : 44 Report #: [id number] THIS REPORT FOR: //name// CC: Erin Hong MD DATE OF SERVICE: 12/12/2018 CHIEF COMPLAINT: Low back pain. HISTORY OF PRESENT ILLNESS: This is a pleasant 78-year-old female, who appears in the clinic today for refill of her medications and also requesting a slight increase in her hydrocodone. She feels that she has been having an increase in pain more recently and feels that if she had 3 hydrocodone a day to help her mid and low back pain as well as her bilateral leg pain that it would be beneficial. She has noticed an increase especially at night, not able to sleep as well. Complains of some slight restless legs syndrome per her diagnosis. The patient does continue her fentanyl patch every 3 days. The patient tells me that she has been going to a chiropractor and he has been "thumping" on her back, not manipulating or doing any hard adjustments. She finds this very beneficial as well and has been seeing him about every 2 weeks on average, her pain score is a 6/10 today, again mostly in her low back and upper legs, worse with lying down, but the medication is somewhat helpful, though would like an increase. ALLERGIES: Quite extensive list. CIPRO, LIPITOR, PENICILLIN, NITROFURANTOIN, NAPROXEN, TETRACYCLINE, BACTRIM, ZOCOR, GABAPENTIN, ZYMAR, CYMBALTA AND ZETIA. CURRENT LIST OF MEDICATIONS: Hydrocodone 7.5/325, fentanyl patch 25 mcg every 3 days, Salonpas patches, Aspercreme, Advil, Lasix, Flonase, Zestril, Eliquis, Zyrtec, Protonix, Pacerone, Prolia, fish oil, multivitamin and CoQ10,. PATIENT'S PQRS: 1. She does have arthritic changes in her lumbar spine. Denies any rheumatoid arthritis. 2. Height is 5 feet 7 inches, weight is 128, BMI is 20. 3. Vital Signs: Blood pressure 131/60, pulse is 65, respirations 14, oxygen sat is 97. 4. Pain score is 6/10. 5. Denies dizziness, does not need help walking or standing, has not fallen in the last 3 months. 6. She is on Eliquis and does not take medicine for high blood pressure. 7. Opioid therapy is greater than 6 weeks; therefore, an opioid signed contract is on the chart. Her risk assessment tool is low. Functional assessment is [address] [address] HISTORY AND PHYSICAL Name: BLANKA CAMEJO Room #: REG MANDY Delgado#: [id number] Admission: 12/12/18 ������������������ Attend Phys: Erin Patel Discharge: ������������������ Date of : 42 Report #: [id number]. 8. Recreational drug use, she denies. She is not a smoker and does not drink alcohol. According to the prescription monitoring system, the patient is filling appropriately for her medications. There is also a drug screen on the chart that is appropriate for her medications as well. PHYSICAL EXAMINATION: GENERAL: This is a well-nourished 78-year-old female who appears her stated age, placing her current pain score at 6/10 today. HEENT: Normocephalic, atraumatic. Extraocular eye muscles are intact. Mucous membranes are moist. NECK: Without adenopathy or JVD. MUSCULOSKELETAL: The patient walks with a slightly antalgic gait. Lower extremity strength judged to be 4/5 in all major muscle groups. She has localized tenderness in her lumbar region of her spine with occasional radiation down her bilateral legs in the posterior aspect to her thighs. She is able to move from sitting to standing by the use of the arm rest. ASSESSMENT: 1. Chronic intractable pain involving her lumbar spine. 2. Kyphosis with spondylosis. 3. History of compression fractures. 4. Chronic atrial fibrillation on anticoagulation therapy. 5. Management of high risk medications under terms of written opioid agreement. We reviewed the fact that opiate medications are being used to provide analgesia adequate to support activities of daily living, not attempting to achieve a specific pain score on the 0-10 Visual Analog Scale. The current opiate medications are providing sufficient analgesia to allow the patient to participate in activities of daily living. The patient is not exhibiting any aberrant behavior suggestive of drug diversion. The patient is not having any adverse reactions to medications. The patient is not suffering from daytime somnolence or mental acuity changes. The patient is managing opiate-induced constipation with appropriate casf-hgz-medimxn agents and dietary considerations. The patient was counseled on concern for caution with operating a motor vehicle while using opiate medications. A physical exam was performed and the patient's functional status was evaluated. All patients with back pain were advised against the bed rest greater than 4 days and were advised to return to normal activities. Pain score assessment was noted and the treatment plan was reviewed with the patient. All current medications, both prescribed and OTC were reviewed and reconciled on the electronic medical record. Tobacco screening was accomplished and smoking cessation was advised when indicated. BMI was noted and diet/exercise [facility] [address] [place] [address] HISTORY AND PHYSICAL Name: BLANKA CAMEJO [facility] [id number] Admission: 12/12/18 ������������������ Attend Phys: Erin ANAHI Patel Discharge: ������������������ Date of : 42 Report #: [id number] modification was recommended for all patients following outside normal parameters. I reviewed with the patient today their responsibilities to safeguard prescription medications, reviewed their responsibility to utilize medications only as prescribed by the physician. They are to seek and receive pain medications only from 1 physician group ( [facility]). They are to use 1 pharmacy and keep the clinic informed if they change pharmacies. Their responsibilities include making followup visits in a timely fashion and to avoid abrupt discontinuation of medication usage. Their responsibilities further include bringing their medications (bottles from the pharmacy with residual pills) to the visit for possible confirmation of pill counts and the patient understands it is their responsibility to submit to random drug screens to ensure both that the medications prescribed are present, and that no other controlled substances are present. All prescriptions provided today were generated electronically. PLAN: 1. We discussed treatment options with her today. The patient would like increase of her hydrocodone. I explained to her that we had decreased her medicines in June because she was having difficulty falling and staying awake. She was falling asleep talking to us and felt like she was over medicated, so we decreased her hydrocodone strength. The patient verbalizes understanding. She feels that she is not overmedicated. She just feels like she needs to take 3 pills a day of her hydrocodone especially noticing that she has not been sleeping as well at night, is not requesting to change to 10 mg, but just 3 pills of her hydrocodone 7s instead of 2-1/2 pills a day. I did calculate the morphine milliequivalent with her fentanyl patch. She would be at 82 morphine milliequivalent, which I explained to her is still in the high end of the CDC guidelines. The patient would need to continue to follow up every 2 months if we increased her medications. The patient verbalizes understanding. 2. Scripts given for her fentanyl patch 25 mcg, #10 for release today and 4-week as well as hydrocodone 7.5, #90 for release today and 4-week. We will do a trial of this medicine for 2 months. She returns at her next appointment as p.r.n. overmedicated. We will decrease her back again. The patient verbalizes understanding. 3. I did caution the patient on taking ibuprofen since she is on a blood thinner. The patient informed me that, that is what helps her pain. I encouraged her since we increased her pain medication is to stop her Advil, ibuprofen use. 4. The patient is seen today in collaboration with Dr. Rogelio Garza who is agreeable with the plan above. The patient will return in 2 months. ��������������������������������������������� <ELECTRONICALLY SIGNED> ���������������������������������������� By: Erin Patel ��������������������������������������������� 12/13/18 1033 [id number] Erin Patel /nt
== END ==
LOC: PAIN 06:47
DX: M47.816 Spondylosis without myelopathy or radiculopathy, lumbar region (principal); M40.209 Unspecified kyphosis, site unspecified; I48.2 Chronic atrial fibrillation; G89.4 Chronic pain syndrome; Z79.891 Long term (current) use of opiate analgesic; Z79.899 Other long term (current) drug therapy; Z88.8 Allergy status to other drugs, medicaments and biological substances

== ENCOUNTER → 2019-02-13 | Outpatient (CLI) | payer OTHER ==
[~2019-02-13] VITALS: Ht 170.2 cm; Wt 60.1 kg
[~2019-02-13] MED LIST changes: +TYLENOL EXTRA500 MG PO
[2019-02-13 10:10] VITALS: BP 120/53
--- NOTE | 2019-02-13 10:35 | NUR ---
Pain Clinic Assessment: 1. History of Osteoarthritis: HANDS BACK KNEES History of Rheumatoid Arthritis: Not Applicable 2. Height: 5 ft. 7 in. 170.2 cm. Weight: 132.6 lb. oz. 60.147 kg. Patient's BMI: 20.8 3. Vital Signs: BP: 120/53 Pulse: 71 Resp: 14 Temp: 02 Sat: 97 ECG Mon: 4. Pain Intensity: 3 5. Fall Risk: Dizziness: N Needs help standing or walking: N Fallen in the last 3 months: N Fall risk comments: 6. Patient on Blood Thinner: ELIQUIS 7. History of Hypertension: N 8. Opioid Therapy greater than 6 weeks: Y Opiate Contract Signed: 10/02/15 9. Risk Assessment Tool Provided: LOW RISK 0/3 10. Functional Assessment Tool: 11. Recreational Drug Use: Never Drug Type: Tobacco Use: Never Smoker Tobacco Type: Amount or Packs/day: How Many Years: Alcohol Use: No Frequency: Quant:
--- NOTE | 2019-02-14 09:03 | HPC ---
[facility] [address] [place] [address] PAIN MANAGEMENT CONSULTATION Name: BASHIRBLANKA Edu Room #: REG MANDY Delgado#: [id number] Admission: 02/13/19 Attend Phys: Erin Patel Discharge: Date of : 42 Report #: [id number] THIS REPORT FOR: //name// CC: Erin Cevallos DATE OF SERVICE: 02/13/2019 CHIEF COMPLAINT: Chronic low back pain. HISTORY OF PRESENT ILLNESS: This is a pleasant 78-year-old female, who returns to the pain clinic today for refill of her medications that she uses to help treat her ongoing low back pain and bilateral leg pain. She does experience numbness in her bilateral feet as well as a dull aching pain that is constant. She reports a pain score of 3/10 today that is exacerbated by doing too much, being too active as well as lying down. She feels that her medications are very beneficial allowing her to clean her house, to go to exercise class, go to nondenominational several times a week, be very active. She also uses heat to her lower back. The patient denies any daytime sleepiness or constipation issues as long as she uses prunes. She reports she does take a daily nap for 30 minutes in the afternoon. ALLERGIES: An extensive list, please see the medical record. MEDICATIONS: Tylenol Extra Strength 500 mg 2 tablets 3 times a day, hydrocodone 7.5/325 t.i.d., fentanyl patch 25 mcg daily, Salonpas patches p.r.n., Aspercreme p.r.n., Lasix 20 mg daily, Flonase p.r.n., lisinopril 40 mg daily, Eliquis 5 mg b.i.d., Zyrtec 10 mg daily, Protonix 40 mg daily, amiodarone 200 mg daily, Prolia every 6 months, fish oil, multivitamin and CoQ10. PQRS: 1. She has arthritic changes in her lumbar spine. Denies any rheumatoid arthritis. 2. Height is 5 feet 7 inches, weight is 132, BMI is 20. 3. Vital signs 120/53, pulse is 71, respirations 14, oxygen sat is 97. 4. Pain score is 3/10. 5. Denies dizziness, does not need help walking or standing, has not fallen in the last 3 months. 6. The patient is on Eliquis as well and does not take medicine for hypertension. 7. Opioid therapy is greater than 6 weeks; therefore, an opioid signed contract is on the chart. Risk assessment tool is low. Functional assessment is . 8. Recreational drug use, she denies. She is not a smoker and does not drink alcohol. [address] [address] PAIN MANAGEMENT CONSULTATION Name: BLANKA CAMEJO Room #: REG MANDY Delgado#: [id number] Admission: 02/13/19 Attend Phys: Erin Patel Discharge: Date of : 42 Report #: [id number] There is a random drug screen on the chart that is appropriate for her medications. We did check the prescription monitoring system. The patient is filling appropriately for her medications from our doctors. She does safeguard her medications at all times. PHYSICAL EXAMINATION: GENERAL: This is a well-developed, well-nourished 78-year-old female who appears her stated age, placing her current pain score at 3/10 today. HEENT: Normocephalic, atraumatic. Extraocular eye muscles are intact. Mucous membranes are moist. NECK: Without adenopathy or JVD. MUSCULOSKELETAL: Pain is located in her lumbar region that radiates into her bilateral legs to her feet, with numbness and tingling in her feet bilaterally. She walks with a slightly antalgic gait. She uses armrest to raise from sitting to standing position. Lower extremity strength judged to be 5/5 in all major muscle groups. IMPRESSION: 1. Chronic intractable pain involving her lumbar spine. 2. Kyphosis with spondylosis. 3. History of compression fractures. 4. Chronic atrial fibrillation, on anticoagulation therapy. 5. Management of high-risk medications under terms of written opioid agreement. PLAN: 1. We discussed treatment options with the patient today. The patient is doing quite well on her current pain regimen, though she has increased her Tylenol use since stopping ibuprofen. I explained to her that she is at the maximum Tylenol level. We would like her to decrease this, so she has no effects on her liver from toxicity with too much Tylenol. The patient verbalizes understanding. She will decrease her extra strength Tylenol to 1 tablet 3 times a day as well as the hydrocodone that is in all of her pain pills. This will decrease her below the 3000 mg per day. 2. Scripts given today for fentanyl 25 mcg, #10, every 72 hours for today and 4-week and hydrocodone 7.5/325, #90, for today and 4 weeks. These were sent electronically by Dr. Rogelio Garza. 3. The patient continues to be active in her nondenominational andin her complex where she lives and affords the ability to do this due to the medications. 4. The patient is seen in collaboration with Dr. Rogelio Garza, who did see the patient as well. She will follow up in 2 months. <ELECTRONICALLY SIGNED> By: Erin Patel 02/14/19 [id number] Erin larson
== END ==
LOC: PAIN 06:52
DX: Z76.0 Encounter for issue of repeat prescription (principal); I48.91 Unspecified atrial fibrillation; M47.816 Spondylosis without myelopathy or radiculopathy, lumbar region; M40.56 Lordosis, unspecified, lumbar region; G89.4 Chronic pain syndrome; Z79.899 Other long term (current) drug therapy

== ENCOUNTER → 2019-04-18 | Outpatient (CLI) | payer OTHER ==
[~2019-04-18] VITALS: Ht 170.2 cm; Wt 59.0 kg
[~2019-04-18] MED LIST changes: +HYDRALAZINE 2525 MG PO
[2019-04-18 13:01] VITALS: BP 135/70
--- NOTE | 2019-04-18 13:25 | NUR ---
Pain Clinic Assessment: 1. History of Osteoarthritis: HANDS BACK KNEES History of Rheumatoid Arthritis: Not Applicable 2. Height: 5 ft. 7 in. 170.2 cm. Weight: 130.0 lb. oz. 58.968 kg. Patient's BMI: 20.4 3. Vital Signs: BP: 135/70 Pulse: 72 Resp: 14 Temp: 02 Sat: 98 ECG Mon: 4. Pain Intensity: 4 5. Fall Risk: Dizziness: N Needs help standing or walking: N Fallen in the last 3 months: N Fall risk comments: 6. Patient on Blood Thinner: ALAINAQUIS 7. History of Hypertension: N 8. Opioid Therapy greater than 6 weeks: Y Opiate Contract Signed: 10/02/15 9. Risk Assessment Tool Provided: LOW RISK 0/3 10. Functional Assessment Tool: 11. Recreational Drug Use: Never Drug Type: Tobacco Use: Never Smoker Tobacco Type: Amount or Packs/day: How Many Years: Alcohol Use: No Frequency: Quant:
--- NOTE | 2019-04-20 08:11 | HPC ---
[facility] [address] [place] [address] PAIN MANAGEMENT CONSULTATION Name: BLANKA CAMEJO Edu Room #: REG MANDY Delgado#: [id number] Admission: 04/18/19 Attend Phys: Erin Patel Discharge: Date of : 42 Report #: [id number] THIS REPORT FOR: //name// CC: Erin Garza MD DATE OF SERVICE: 04/18/2019 CHIEF COMPLAINT: Chronic low back pain. HISTORY OF PRESENT ILLNESS: This is a very pleasant 78-year-old female, who returns to the pain clinic today for refill of her medications. She called today stating she was out of her hydrocodone, which she is due to fill these today. She was slightly confused on how our new system is working with E-prescribing her medications. We will send her medicines electronically and she thought she was not required to come in every 2 months, so therefore she is here today out of her medications. The patient does find her medications very beneficial in controlling her low back pain. It does radiate down her bilateral legs. She explains that her pain score is a 4/10 today. Occasionally, she will have increased pain when fentanyl patch is due to be changed. She does use some supplemental Tylenol on top of her hydrocodone if she does have increased pain. She reports a numbness dull, constant pain, rating at a 4/10. It is worse when she overdoes her activity or she also has pain when lying down. She feels that the heat and medications are beneficial. She denies any problems with constipation or daytime sleepiness, but does take a scheduled nap every afternoon. ALLERGIES: CIPRO, LIPITOR, PENICILLIN, NITROFURANTOIN, NAPROXEN, TETRACYCLINE, BACTRIM, CIPRO, SIMVASTATIN, GABAPENTIN, ZYMAR, DULOXETINE, ZETIA. CURRENT LIST OF MEDICATIONS: Hydralazine 25 mg 3 times a day, fentanyl patch 25 mcg every 3 days, hydrocodone 7.5/325 t.i.d. p.r.n., Tylenol Extra Strength three tablets a day p.r.n., Salonpas, Aspercreme, Zestril, Eliquis, Zyrtec, Protonix, Prolia, fish oil, multivitamin and CoQ10. PQRS: 1. She has osteoarthritis in her hands, knees and feet. Denies any rheumatoid arthritis. 2. Height is 5 feet 7 inches, weight is 130, BMI is 20.4. 3. Vital signs 135/70, pulse is 72, respirations 14, oxygen sat is 98. 4. Pain score is 4/10. 5. Denies dizziness, does not need help walking or standing, has not fallen in [address] [address] PAIN MANAGEMENT CONSULTATION Name: BLANKA CAMEJO [id number] Admission: 04/18/19 Attend Phys: Erin Patel Discharge: Date of : 42 Report #: [id number] the last 3 months. 6. The patient is on Eliquis as well as medicines for hypertension. 7. Opiate therapy is greater than 6 weeks; therefore, an opioid signed contract is on the chart. Risk assessment tool is low. Functional assessment is . 8. Recreational drug use, she denies. She is not a smoker and does not drink alcohol. According to the prescription monitoring system, the patient is due to fill her medications today. Her current morphine mEq is 67 MMEs. PHYSICAL EXAMINATION: GENERAL: This is an alert and orientated 78-year-old female who appears her stated age, placing her current pain score at 4/10 today. HEENT: Normocephalic, atraumatic. Mucous membranes are moist. Extraocular activities are intact. NECK: Without adenopathy or JVD. MUSCULOSKELETAL: The patient walks with a slightly antalgic gait. Pain is in the lumbar spine that radiates down her bilateral legs with numbness in her feet. She does use the armrest to raise from sitting to standing position, though her lower extremity strength judged to be 5/5 with all major muscle groups. IMPRESSION: 1. Chronic intractable pain involving her lumbar spine, bilateral legs. 2. Kyphosis with spondylosis. 3. History of compression fractures. 4. Chronic atrial fibrillation, on anticoagulation therapy. 5. Management of high risk medications under terms of written opioid agreement. We reviewed the fact that opiate medications are being used to provide analgesia adequate to support activities of daily living, not attempting to achieve a specific pain score on the 0-10 Visual Analog Scale. The current opiate medications are providing sufficient analgesia to allow the patient to participate in activities of daily living. The patient is not exhibiting any aberrant behavior suggestive of drug diversion. The patient is not having any adverse reactions to medications. The patient is not suffering from daytime somnolence or mental acuity changes. The patient is managing opiate-induced constipation with appropriate lvln-gaz-xuxvwuh agents and dietary considerations. The patient was counseled on concern for caution with operating a motor vehicle while using opiate medications. PLAN: 1. We discussed treatment options with the patient today. The patient finds her fentanyl patch very beneficial. She does find that the end of her third day, her pain does slightly increase. She takes an occasional extra strength Tylenol to help relieve some of those discomfort. She feels that the [facility] [address] [place] [address] PAIN MANAGEMENT CONSULTATION Name: BASHIRBLANKA Edu Room #: REG MANDY Delgado#: [id number] Admission: 04/18/19 Attend Phys: Erin Patel Discharge: Date of : 44 Report #: [id number] patches are very beneficial and was thankful that she was able to switch back to those since her previous brand did not control her pain as well. We will e-prescribe her fentanyl 25 mcg, #10 for today and 4-week release as well as her hydrocodone 7.5/325, #90, for today and 4-week release. 2. The patient is reminded that she is to call for an appointment when she fills her second script as to not run out of medication and experience possible withdrawal. The patient verbalizes understanding that she knows she has to be seen every 2 months. 3. The patient is seen in collaboration with Dr. Keith Ordonez. The patient will call for an appointment as needed. <ELECTRONICALLY SIGNED> By: Erin Patel 04/20/19 0811 [id number] Erin Patel /nt
== END ==
LOC: PAIN 12:04
DX: M47.816 Spondylosis without myelopathy or radiculopathy, lumbar region (principal); M40.46 Postural lordosis, lumbar region; M19.90 Unspecified osteoarthritis, unspecified site; I10 Essential (primary) hypertension; G89.4 Chronic pain syndrome; I48.20 Chronic atrial fibrillation, unspecified; Z79.899 Other long term (current) drug therapy; Z79.891 Long term (current) use of opiate analgesic; Z88.8 Allergy status to other drugs, medicaments and biological substances; Z88.0 Allergy status to penicillin

== ENCOUNTER → 2019-06-19 | Outpatient (CLI) | payer OTHER ==
[~2019-06-19] VITALS: Ht 170.2 cm; Wt 58.6 kg
[~2019-06-19] MED LIST changes: +XYZAL5 MG PO
[2019-06-19 10:56] VITALS: BP 144/59
--- NOTE | 2019-06-19 11:07 | NUR ---
Pain Clinic Assessment: 1. History of Osteoarthritis: HANDS BACK KNEES History of Rheumatoid Arthritis: DENIES 2. Height: 5 ft. 7 in. 170.2 cm. Weight: 129.2 lb. oz. 58.605 kg. Patient's BMI: 20.2 3. Vital Signs: BP: 144/59 Pulse: 71 Resp: 14 Temp: 02 Sat: 100 ECG Mon: 4. Pain Intensity: 3 5. Fall Risk: Dizziness: N Needs help standing or walking: N Fallen in the last 3 months: N Fall risk comments: 6. Patient on Blood Thinner: ROSA 7. History of Hypertension: N 8. Opioid Therapy greater than 6 weeks: Y Opiate Contract Signed: 10/02/15 9. Risk Assessment Tool Provided: LOW RISK 0/3 10. Functional Assessment Tool: 11. Recreational Drug Use: Never Drug Type: Tobacco Use: Never Smoker Tobacco Type: Amount or Packs/day: How Many Years: Alcohol Use: No Frequency: Quant:
--- NOTE | 2019-06-20 08:42 | HPC ---
[facility] [address] [place] [address] PAIN MANAGEMENT CONSULTATION Name: BLANKA CAMEJO Room #: REG MANDY Delgado#: [id number] Admission: 06/19/19 Attend Phys: Erin Patel Discharge: Date of : 44 Report #: [id number] THIS REPORT FOR: cc: Jadon Hong MD,Jadon Patel,Erin CHRISTIAN ~ CC: Erin Hong DATE OF SERVICE: 06/19/2019 CHIEF COMPLAINT: Chronic low back pain. HISTORY OF PRESENT ILLNESS: This is a pleasant 79-year-old female who returns to the pain clinic today for refill of her fentanyl patches and hydrocodone that she uses to help treat her ongoing low back pain that radiates into her legs and knees. Occasionally, her feet do feel numb. She is reporting a pain score 03/10, which is a dull, constant, aching feeling, worse with lying down or over doing housework. She feels the medication as well as heat and repositioning are beneficial. Today, the patient reports that her right leg had been quite bothersome recently. She did have a bursa injection from her primary care office with steroids on . She reports that has been very beneficial in decreasing some of her pain. She feels that may be helpful in decreasing her overall pain score that she is giving us today. The patient does report that she had one episode of constipation issues since we last saw her. She took a laxative after 2 days and that relieved her constipation. She states that normally this has not been a problem for her. ALLERGIES: CIPRO, LIPITOR, PENICILLIN, NITROFURANTOIN, NAPROXEN, TETRACYCLINE, BACTRIM, ZOCOR, GABAPENTIN, ZYMAR, CYMBALTA, ZETIA AND SOTALOL. MEDICATIONS: Xyzal, hydrocodone 7.5/325 p.o. t.i.d. p.r.n., fentanyl 25 mcg patch, Salonpas, Aspercreme, Flonase, Zestril, Eliquis, Zyrtec, Protonix, Prolia, fish oil, multivitamin and CoQ10. PQRS: 1. She has osteoarthritis in her hands, back and knees. Denies any rheumatoid arthritis. 2. Height is 5 feet 7 inches, weight is 129, BMI is 20. 3. Vital signs 144/59, pulse is 71, respirations 14, oxygen sat is 100, is 98.4. 4. Pain score is 3/10. 5. Denies dizziness, does not need help walking or standing, has not fallen in the last 3 months. 6. The patient is on Eliquis, does not have a history of hypertension. Her [address] [address] PAIN MANAGEMENT CONSULTATION Name: BLANKA CAMEJO Room #: REG MANDY Delgado#: [id number] Admission: 06/19/19 Attend Phys: Erin Patel Discharge: Date of : 42 Report #: [id number] opioid therapy is greater than 6 weeks; therefore, an opioid signed contract is on the chart. Risk assessment tool is low. Functional assessment is 1470. 7. Recreational drug use, she denies. She is not a smoker and does not drink alcohol. According to the prescription monitoring system, the patient is filling appropriately for her medications in a timely fashion. She is due to fill those medicines today. According to the CDC guidelines, her morphine mEq per day is 82 MME. There is a recent drug screen on the chart that is appropriate as well. We will recheck that at her next appointment. PHYSICAL EXAMINATION: GENERAL: This is an alert and orientated 79-year-old female who appears her stated age, placing her current pain score today at 3/10. HEENT: Normocephalic, atraumatic. Extraocular eye muscles are intact. Mucous membranes are moist. NECK: Without adenopathy or JVD. MUSCULOSKELETAL: The patient has pain in her lumbar spine that radiates into her bilateral legs. She walks with a slightly antalgic gait. She does raise from the sitting to standing position using the assistance of the armrest. Her strength in her lower extremity, though judged to be 5/5 in her upper and lower extremities. IMPRESSION: 1. Chronic intractable pain involving the lumbar spine. 2. Kyphosis with spondylosis. 3. History of compression fractures. 4. Chronic atrial fibrillation, on Xarelto. 5. Management of high risk medications under terms of written opioid agreement. We reviewed the fact that opiate medications are being used to provide analgesia adequate to support activities of daily living, not attempting to achieve a specific pain score on the 0-10 Visual Analog Scale. The current opiate medications are providing sufficient analgesia to allow the patient to participate in activities of daily living. The patient is not exhibiting any aberrant behavior suggestive of drug diversion. The patient is not having any adverse reactions to medications. The patient is not suffering from daytime somnolence or mental acuity changes. The patient is managing opiate-induced constipation with appropriate hzyo-lbe-noumjua agents and dietary considerations. The patient was counseled on concern for caution with operating a motor vehicle while using opiate medications. A physical exam was performed and the patient's functional status was evaluated. All patients with back pain were advised against the bed rest greater than 4 days and were advised to return to normal activities. Pain score assessment was noted and the treatment plan was reviewed with the patient. All current [facility] [address] [place] [address] PAIN MANAGEMENT CONSULTATION Name: BLANKA CAMEJO Edu Room #: REG [facility].#: [id number] Admission: 06/19/19 Attend Phys: Erin Patel Discharge: Date of : 42 Report #: [id number] medications, both prescribed and OTC were reviewed and reconciled on the electronic medical record. Tobacco screening was accomplished and smoking cessation was advised when indicated. BMI was noted and diet/exercise modification was recommended for all patients following outside normal parameters. I reviewed with the patient today their responsibilities to safeguard prescription medications, reviewed their responsibility to utilize medications only as prescribed by the physician. They are to seek and receive pain medications only from 1 physician group ( [facility]). They are to use 1 pharmacy and keep the clinic informed if they change pharmacies. Their responsibilities include making followup visits in a timely fashion and to avoid abrupt discontinuation of medication usage. Their responsibilities further include bringing their medications (bottles from the pharmacy with residual pills) to the visit for possible confirmation of pill counts and the patient understands it is their responsibility to submit to random drug screens to ensure both that the medications prescribed are present, and that no other controlled substances are present. All prescriptions provided today were generated electronically. PLAN: 1. We discussed treatment options with the patient today. The patient finds her fentanyl patches and hydrocodone very beneficial in controlling her pain with very minimal side effects. We will refill these medications today. Send them electronically for fentanyl 25 mcg patch #10 for today and 4 weeks supply as well as her hydrocodone 7.5, #90 for 2 months. 2. I encouraged the patient to monitor her diet and drink plenty of liquids to help with her constipation issues when they arise. The patient verbalizes understanding. 3. The patient is seen in collaboration with Dr. Rogelio Garza. <ELECTRONICALLY SIGNED> By: Erin Patel 06/20/19 0842 [id number] 1401 Erin Patel /nt
== END ==
LOC: PAIN 06:46
DX: M47.816 Spondylosis without myelopathy or radiculopathy, lumbar region (principal); G89.29 Other chronic pain; M40.299 Other kyphosis, site unspecified; I48.21 Permanent atrial fibrillation; Z88.0 Allergy status to penicillin; Z88.8 Allergy status to other drugs, medicaments and biological substances; Z79.899 Other long term (current) drug therapy

== ENCOUNTER → 2019-08-14 | Outpatient (CLI) | payer OTHER ==
[~2019-08-14] VITALS: Ht 170.2 cm; Wt 57.4 kg
[2019-08-14 10:02] VITALS: BP 135/81
--- NOTE | 2019-08-14 10:12 | NUR ---
Pain Clinic Assessment: 1. History of Osteoarthritis: HANDS BACK KNEES History of Rheumatoid Arthritis: DENIES 2. Height: 5 ft. 7 in. 170.2 cm. Weight: 126.6 lb. oz. 57.425 kg. Patient's BMI: 19.8 3. Vital Signs: BP: 135/81 Pulse: 74 Resp: 14 Temp: 02 Sat: 97 ECG Mon: 4. Pain Intensity: 8 5. Fall Risk: Dizziness: N Needs help standing or walking: N Fallen in the last 3 months: N Fall risk comments: 6. Patient on Blood Thinner: ROSA 7. History of Hypertension: N 8. Opioid Therapy greater than 6 weeks: Y Opiate Contract Signed: 10/02/15 9. Risk Assessment Tool Provided: LOW RISK 0/3 10. Functional Assessment Tool: 11. Recreational Drug Use: Never Drug Type: Tobacco Use: Never Smoker Tobacco Type: Amount or Packs/day: How Many Years: Alcohol Use: No Frequency: Quant:
--- NOTE | 2019-08-15 18:18 | HPC ---
[facility] [place] [address] PAIN MANAGEMENT CONSULTATION Name: BLANKA CAMEJO Room #: REG MANDY Dylan.#: [id number] Admission: 08/14/19 Attend Phys: Rogelio Garza MD Discharge: Date of : 42 Report #: [id number] THIS REPORT FOR: cc: Jadon Hong MD, Logan F. MD Morgan,Rogelio Dillon MD ~ CC: Jadon Garza DATE OF SERVICE: 08/14/2019 Followup visit for chronic low back pain. The patient returns to pain clinic today to renew medications. She is a 79-year-old [facility] who takes pain medications for management of her longstanding spondylitic pain. She has been on medications from our clinic dating back to 2013. Her doses have been stable. She is on fentanyl patch 25 mcg and hydrocodone 10/325 one to two tablets for breakthrough pain as needed t.i.d. She gets 90 total tablets per month. She uses them all. She usually takes 1 in the morning, 1 later in the afternoon and 1 in the evening. She reports no significant side effects. She is grateful for the relief as it allows her to be more active. Her pain is radicular in nature. I have never given her an epidural injection. We did discuss that as possible useful treatment for her if pain worsens. She would have to go off of her Eliquis because she has atrial fibrillation. She and her lived together and alone. They carefully safeguards all her medications. He is 86 years old and a cancer survivor from lymphoma. She uses fentanyl patches carefully. She finds that they are effective. She changes the patches every 72 hours, the last 10-12 hours often times at her worst pain and that seems to be typical for many patients. The patches are not always calibrated directly to 72 hours. PQRS REVIEW: Positive for osteoarthritis she has in multiple joints including hands, feet, back and knees. BMI 19.8, unchanged from previous visits. Blood pressure 135/81, heart rate 74, respirations 14, O2 sat 97, pain intensity 8/10. She has not fallen in the last 3 months and does not use a walker. She takes Eliquis for atrial fibrillation and does not have a history of hypertension. She is not treated with any antihypertensive medications, but again, uses opioids under terms of written agreement signed last in 2015. Risk assessment score of 0. Functional assessment score is pretty good at 14, suggesting that she does not complain much of pain. She denies use of tobacco and alcohol. IMPRESSION: Chronic intractable back pain with spondylosis. Longstanding use of opioids without complications. [address] [address] PAIN MANAGEMENT CONSULTATION Name: BLANKA CAMEJO Edu Room #: REG MANDY Delgado#: [id number] Admission: 08/14/19 Attend Phys: Rogelio Garza MD Discharge: Date of : 42 Report #: [id number] I have reviewed her prescription drug monitoring program information and there are no unexpected entries. I am her only provider or physician from our clinic. I did request a urine drug screen today for her and that will be done, it has been sometime since we have done on our chart. Followup visit planned. Medications sent electronically. <ELECTRONICALLY SIGNED> By: Rogelio Garza MD 08/15/19 1818 1604 1844 Rogelio Garza MD /nt
== END ==
LOC: PAIN 06:51
DX: M47.816 Spondylosis without myelopathy or radiculopathy, lumbar region (principal); F11.20 Opioid dependence, uncomplicated; Z79.899 Other long term (current) drug therapy

== ENCOUNTER → 2019-10-09 | Outpatient (CLI) | payer OTHER ==
[~2019-10-09] VITALS: Ht 170.2 cm; Wt 57.9 kg
[~2019-10-09] MED LIST changes: +HYDROCODON-ACE1 EAC7 PO; +IRON325 M1 PO; +MUCINEX600 MG PO; +SINGULAIR 10 MG10 MG PO
--- NOTE | ~2019-10-09 | HPC ---
[facility] [place] [address] PAIN MANAGEMENT CONSULTATION Name: BLANKA CAMEJO Room #: REG MANDY Dylan.#: [id number] Admission: 10/09/19 Attend Phys: Rogelio Garza MD Discharge: Date of : 42 Report #: [id number] THIS REPORT FOR: cc: Jadon Hong MD,Jadon Garza,Rogelio Dillon MD ~ CC: Jadon Garza DATE OF SERVICE: 10/09/2019 Followup visit for management of chronic low back pain, management of high risk medications under terms of an opioid agreement. The patient returns to pain clinic today for renewal of her medications. She has been on an opioid agreement dating back over 6 years. She has found that the medication has allowed her to be more active and functional and reduce her pain by over 50%. She is grateful for the pain relief. We have been prescribing her medicines carefully and I have reviewed her prescription drug monitoring program information and there are no unexpected entries. She is using fentanyl 25 mcg patch every 3 days, hydrocodone 7.5/325 one tablet 3 times a day. She is getting older. Today, she seems to be calling on her memory a little bit more than I remember. I decided that we would reduce her hydrocodone from 7.5 to 5 mg. This is a slight reduction along with her baseline. I think she will tolerate it well. She denies side effects. Pain continues to be radicular in nature. She does not show interest in injections and is on a blood thinner. PQRS REVIEW: Positive for osteoarthritis. BMI is 20, blood pressure 148/83, heart rate 70, respirations 16, O2 sat 100 on room air. Pain intensity with medication 06/12. She has not fallen in the last 3 months. Blood thinner Eliquis was reviewed. She has no history of hypertension. Her opioid agreement was last signed in 2015. At each visit, we reviewed the terms of that agreement and importance of safeguarding them. She is at low risk for addiction 0 on the ORT score. Functional assessment score is 14, which is likely a bit low given her description of her activities. She denies use of tobacco and alcohol as a [employer]. IMPRESSION: 1. Chronic intractable back pain with spondylosis and radiculopathy. 2. Management of high risk medications under terms of an opioid agreement. 3. History of atrial fibrillation, on Eliquis. 4. History of compression fractures contributing to her overall chronic pain. [facility] [address] [place] [address] PAIN MANAGEMENT CONSULTATION Name: BLANKA CAMEJO Room #: REG [facility] Danny#: [id number] Admission: 10/09/19 Attend Phys: Rogelio Garza MD Discharge: Date of : 42 Report #: [id number] PLAN: Follow up in 3 months. By: 1303 1454 Rogelio Garza MD /nt
[2019-10-09 10:35] VITALS: BP 148/83
--- NOTE | 2019-10-09 10:54 | NUR ---
Pain Clinic Assessment: 1. History of Osteoarthritis: HANDS BACK KNEES History of Rheumatoid Arthritis: DENIES 2. Height: 5 ft. 7 in. 170.2 cm. Weight: 127.6 lb. oz. 57.879 kg. Patient's BMI: 20.0 3. Vital Signs: BP: 148/83 Pulse: 70 Resp: 16 Temp: 02 Sat: 100 ECG Mon: 4. Pain Intensity: 3 5. Fall Risk: Dizziness: N Needs help standing or walking: N Fallen in the last 3 months: N Fall risk comments: 6. Patient on Blood Thinner: ROSA 7. History of Hypertension: N 8. Opioid Therapy greater than 6 weeks: Y Opiate Contract Signed: 10/02/15 9. Risk Assessment Tool Provided: LOW RISK 0/3 10. Functional Assessment Tool: 11. Recreational Drug Use: Never Drug Type: Tobacco Use: Never Smoker Tobacco Type: Amount or Packs/day: How Many Years: Alcohol Use: No Frequency: Quant:
== END ==
LOC: PAIN 06:51
PROVIDERS: ATTEND Anesthesiology Pain Medicine
DX: M47.26 Other spondylosis with radiculopathy, lumbar region (principal); I48.91 Unspecified atrial fibrillation; Z79.891 Long term (current) use of opiate analgesic

== ENCOUNTER → 2019-12-04 | Outpatient (CLI) | payer OTHER ==
[~2019-12-04] VITALS: Ht 170.2 cm; Wt 57.4 kg
[2019-12-04 10:11] VITALS: BP 157/84
--- NOTE | 2019-12-04 15:33 | HPC ---
[facility] [address] [place] [address] PAIN MANAGEMENT CONSULTATION Name: BLANKA CAMEJO Room #: REG MANDY Richardson.#: [id number] Admission: 12/04/19 Attend Phys: Erin Patel Discharge: Date of : 42 Report #: [id number] THIS REPORT FOR: cc: Jadon Hong MD, Logan F. MD Hocker,Erin CHRISTIAN ~ CC: Rogelio Garza MD DATE OF SERVICE: 12/04/2019 CHIEF COMPLAINT: Chronic low back pain. HISTORY OF PRESENT ILLNESS: This is a pleasant 79-year-old female who is returning today to discuss her opioid medications and to have a refill. She believes that her pain medicines allow her significant pain relief today her pain has been a 1/10. Most of her pain is usually located in her lower and mid back. It does radiate into her legs. She does have some numbness in her arms as well. She states that activity does increase her pain and the medication as well as heat are beneficial. It does allow her to be as active as she would like and function on a daily basis. She does complain of slight constipation issues and takes Colace 3 times a day. ALLERGIES: Please see significant list. MEDICATIONS: Hydrocodone 5/325 t.i.d. p.r.n., fentanyl 25 mcg patches, guaifenesin, Singulair, iron, Xyzal, hydralazine, Salonpas, Zestril, Eliquis, Zyrtec, Protonix, Prolia, fish oil, multivitamin, CoQ10. PQRS: 1. Positive for osteoarthritis. Denies any rheumatoid arthritis. 2. Height is 5 feet 7 inches, weight is 126, BMI is 19. Vital signs blood pressure 157/84, pulse is 76, respirations 16, oxygen sat is 97%. Pain score is 1/10. 3. Fall risk: Denies dizziness, does not need help walking or standing, has not fallen in the last 3 months. The patient is on Eliquis and denies any medicine for hypertension. Her opioid therapy is greater than 6 weeks; therefore, an opioid signed contract is on the chart. Risk assessment is low. Functional assessment is . 4. Recreational drug use, she denies. She is not a smoker and does not drink alcohol. According to the prescription monitoring system, the patient is due to fill her medications at the end of this week. Though the patient did bring her medications with her today, I did count her hydrocodone pills. She has a total of 52 pills here plus additional 12 at home, so a total of 64 hydrocodone pills and a total of 4 patches of her fentanyl based. On these findings, she is a [facility] [address] [place] [address] PAIN MANAGEMENT CONSULTATION Name: BLANKA CAMEJO Room #: REG MANDY Delgado#: [id number] Admission: 12/04/19 Attend Phys: Erin Patel Discharge: Date of : 42 Report #: [id number] week and a half due from filling her medications. The patient's morphine mEq is 75 MME at her current dose. There is a drug screen on the chart that is appropriate for all of her medications from her last visit. PHYSICAL EXAMINATION: GENERAL: This is alert and orientated female who appears her stated age. She is alert and orientated today. Able to answer all my questions without difficulty. HEENT: Normocephalic, atraumatic. Extraocular eye muscles are intact. She does wear a mask. MUSCULOSKELETAL: Low back pain that radiates into her bilateral legs. She walks with a slightly antalgic gait. Able to move from sitting to standing with minimal difficulty. Her lower extremity strength judged to be symmetrical at 5/5 in touch from L1-S2. IMPRESSION: 1. Chronic intractable pain with spondylosis and radiculopathy. 2. Management of high risk medications under terms of written opioid agreement. 3. History of atrial fibrillation, on Eliquis. 4. Kyphosis with spondylosis. PLAN: 1. We discussed treatment options with the patient today. I did count her medications, she has 62 hydrocodone pills and 4 fentanyl patches. The patient is unsure how she continues to have extra at the end of each month. She feels that she does take 3 tablets every day of her hydrocodone. We have decided that we will have her fill her prescriptions on 12/11 and 01/08 release. This is slightly over a week from now on. The patient will be able to use most of her medications in that time and then will bring her medications at her next visit. I explained to the patient that she will still has several days left of medications at home and one fentanyl patch. It is not our goal to have her totally out of medications before she comes for her next appointment in case she does get sick or there is an emergency. She still will have medications that the patient does not feel comfortable having almost 2 weeks supply of medication at home. The patient verbalizes understanding of the adjustment in her dates for fills. 2. We did discuss her constipation issues. The patient takes Colace 3 times a day and still complains of constipation. I encouraged her to try Senna at bedtime and Colace only in the morning and see if this is beneficial in reducing some of her opioid constipation. 3. Dr. Garza will send her medications to her pharmacy. The patient will follow up with us in [address] Garza did collaborate care today. <ELECTRONICALLY SIGNED> By: Erin Patel 12/04/19 1533 [id number] Erin Patel /nt
== END ==
LOC: PAIN 06:56
PROVIDERS: ATTEND Clinical Nurse Specialist Adult Health
DX: M47.26 Other spondylosis with radiculopathy, lumbar region (principal); G89.29 Other chronic pain; F11.20 Opioid dependence, uncomplicated; M40.10 Other secondary kyphosis, site unspecified; Z79.899 Other long term (current) drug therapy; Z86.79 Personal history of other diseases of the circulatory system

== ENCOUNTER → 2020-01-08 | Outpatient (CLI) | payer OTHER ==
[~2020-01-08] VITALS: Ht 170.2 cm; Wt 61.6 kg
[~2020-01-08] MED LIST changes: +BENADRYL25 MG PO; +LANOXIN125 MCG PO; +PRESERVISION T1 EACH PO
[2020-01-08 09:52] VITALS: BP 168/60
--- NOTE | 2020-01-08 10:10 | NUR ---
Pain Clinic Assessment: 1. History of Osteoarthritis: HANDS BACK KNEES History of Rheumatoid Arthritis: DENIES 2. Height: 5 ft. 7 in. 170.2 cm. Weight: 135.8 lb. oz. 61.598 kg. Patient's BMI: 21.3 3. Vital Signs: BP: 168/60 Pulse: 63 Resp: 14 Temp: 02 Sat: 97 ECG Mon: 4. Pain Intensity: 4 5. Fall Risk: Dizziness: N Needs help standing or walking: N Fallen in the last 3 months: N Fall risk comments: 6. Patient on Blood Thinner: ROSA 7. History of Hypertension: N 8. Opioid Therapy greater than 6 weeks: Y Opiate Contract Signed: 10/02/15 9. Risk Assessment Tool Provided: LOW RISK 0/3 10. Functional Assessment Tool: 11. Recreational Drug Use: Never Drug Type: Tobacco Use: Never Smoker Tobacco Type: Amount or Packs/day: How Many Years: Alcohol Use: No Frequency: Quant:
--- NOTE | 2020-01-09 07:58 | HPC ---
[facility] [address] [place] [address] PAIN MANAGEMENT CONSULTATION Name: BLANKA CAMEJO Room #: REG JESSAFaye Delgado#: [id number] Admission: 01/08/20 Attend Phys: Erin Patel Discharge: Date of : 44 Report #: [id number] CC: Eirn Garza MD DATE OF SERVICE: 01/08/2020 CHIEF COMPLAINT: Chronic low back pain. HISTORY OF PRESENT ILLNESS: This is a 79-year-old female who returns to the pain clinic today to discuss her opioid medications. The patient thought she was due for a refill of her medications, but there is a prescription at the pharmacy waiting to be filled this week. The patient has brought back her medications for us to count. We have been trying to adjust her medications according to her usage. The patient reports taking 3 hydrocodone a day, but again today she has 50 hydrocodone pills in her possession as well as 2 fentanyl patch, which is with her and was unaware that was a prescription at the pharmacy to be picked up later this week. So today, we will adjust her medications accordingly for her low back pain. She is rating it a pain of 4/10 today, centrally located in her lumbosacral region with some radicular symptoms into her legs. It is a dull, constant pain. She is unsure what makes it worse, but she does believe the medications as well as heat and ice are beneficial. Today, the patient is also telling me she just does not feel very good. She has no energy. She knows her atrial fibrillation is acting up. She continues on her medications and does have an appointment tomorrow to see the manager commission. They have been adjusting her medications for the past few months. ALLERGIES: Please see significant list in the computer. MEDICATIONS: Hydrocodone 5/325 p.r.n., fentanyl 25 mcg patch, Lanoxin, PreserVision, Colace, Singulair, iron, hydralazine, Salonpas, Zestril, Eliquis, Zyrtec, Protonix, Prolia, fish oil, multivitamin, CoQ10. PQRS: 1. She is positive for osteoarthritis and denies rheumatoid arthritis. 2. Height is 5 feet 7 inches, weight is 135, BMI is 21. 3. Vital signs; blood pressure 168/60, pulse is 63, respirations 14, oxygen sat is 97%. 4. Pain score is 4/10. 5. Fall risk. Denies dizziness, does not need help walking or standing, has not fallen in the last 3 months. 6. The patient is not on any Eliquis and does not take medicine for hypertension. 7. Opioid therapy is greater than 6 weeks; therefore, an opioid signed contract is on the chart. Risk assessment is low. Functional assessment is . 8. Recreational drug use, she denies. She is not a smoker and does not drink alcohol. According to the prescription monitoring system, the patient has filled her last prescription on 12/12/2019. She has a prescription at the pharmacy. Her morphine milliequivalent according to her sign dose is 75. The patient does take less of this based on her usage. PHYSICAL EXAMINATION: GENERAL: This is alert and orientated 79-year-old female who is a good historian, appears tired acting today. HEENT: Normocephalic, atraumatic. Extraocular eye muscles are intact. She is wearing a mask. CARDIAC: Irregular heartbeat. MUSCULOSKELETAL: Low back pain that radiates into her bilateral legs. She does have an antalgic gait. Her lower extremity strength is symmetrical at 5/5. IMPRESSION: 1. Chronic intractable pain with spondylosis and radiculopathy. 2. Kyphosis with spondylosis. 3. History of atrial fibrillation, on Eliquis. 4. Management of high risk medications under terms of written agreement. We reviewed the fact that opiate medications are being used to provide analgesia adequate to support activities of daily living, not attempting to achieve a specific pain score on the 0-10 Visual Analog Scale. The current opiate medications are providing sufficient analgesia to allow the patient to participate in activities of daily living. The patient is not exhibiting any aberrant behavior suggestive of drug diversion. The patient is not having any adverse reactions to medications. The patient is not suffering from daytime somnolence or mental acuity changes. The patient is managing opiate-induced constipation with appropriate [id number] agents and dietary considerations. The patient was counseled on concern for caution with operating a motor vehicle while using opiate medications. PLAN: 1. We discussed treatment options with the patient today. The patient did bring her pills with her today. We counted those medications. She has 50 hydrocodone pills as well as 2 fentanyl patch left. She was due to fill her medications today. I explained to her that we will call the pharmacy and have then released on Wednesday and she will change her fentanyl patch on Wednesday. We will adjust her hydrocodone down to 60 tablets for the next month, hopefully having her utilize her medications that she has leftover. Patient is instructed to call us on 02/08/2020 with a pill count. At that time, we will determine if we decrease her hydrocodone to 2 tablets a day or continue her at 3. The patient does report taking 3 tablets on a daily basis, but we continued to have more than half a month of medication left over. The patient verbalizes understanding. 2. I encouraged the patient to see her manager commission. The patient reports she does have an appointment on Wednesday for her atrial fibrillation. They have been adjusting her medications. She is feeling tired today and know that her medications need adjustment again. She did take her Eliquis today. 3. The patient is seen in collaboration with Dr. Rogelio Garza. No prescriptions were sent. <ELECTRONICALLY SIGNED> By: Erin Patel 01/09/20 [id number] Erin Patel /nt
== END ==
LOC: PAIN 06:58
PROVIDERS: ATTEND Clinical Nurse Specialist Adult Health
DX: M47.26 Other spondylosis with radiculopathy, lumbar region (principal); M40.299 Other kyphosis, site unspecified; I48.91 Unspecified atrial fibrillation; F11.20 Opioid dependence, uncomplicated; Z79.899 Other long term (current) drug therapy

== ENCOUNTER → 2020-04-11 | Outpatient (CLI) | payer OTHER ==
[~2020-04-11] VITALS: Ht 170.2 cm; Wt 61.2 kg
[~2020-04-11] MED LIST changes: +ESTRACE42.5 GM VAG; +PACERONE100 MG PO; +TIZANIDINE HCL2 M1 PO
--- NOTE | ~2020-04-11 | HPC ---
[facility] [address] [place] [address] PAIN MANAGEMENT CONSULTATION Name: BLANKA CAMEJO Room #: REG [facility] CHILDRENLuis.#: [id number] Admission: 04/11/20 Attend Phys: Erin Patel Discharge: Date of : 44 Report #: [id number] THIS REPORT FOR: cc: Jadon Hong MD, Logan F. MD Hocker,Erin CHRISTIAN ~ DATE OF SERVICE: 04/11/2020 CHIEF COMPLAINT: Chronic low back pain, lumbar radiculopathy. HISTORY OF PRESENT ILLNESS: This is a pleasant 79-year-old female who returns to the pain clinic today for refill of her medications. Today, she is reporting a pain score of 4/10, stating she is doing quite well on her current regimen. She does report that her pain loses efficacy for final day, she is wearing it before she changes it, those days she does utilize 3 hydrocodone tablets a day. The patient reports the majority of her pain is in her right leg that is a dull, constant numbness sensation. Aside from using her medications, she believes heat and ice are beneficial as well. The patient does report several new medications today. At our last visit, she was reporting lack of energy. She felt that her atrial fibrillation was acting up. She did see the group rooms coordinator and has now started amiodarone. She is unsure of the dose that she is on, but reports that she is feeling better in regard to her cardiac conditions. ALLERGIES: CIPRO, ATORVASTATIN, PENICILLIN, ____, NAPROXEN, TETRACYCLINE, BACTRIM, ZOCOR, GABAPENTIN, ZYMAR, CYMBALTA, ZETIA AND SOTALOL. MEDICATIONS: Hydrocodone 5/325 up to 3 times a day, fentanyl patch 25 mcg, Benadryl p.r.n., Colace, Singulair, iron, hydralazine, Salonpas, Eliquis, Zyrtec, Protonix, Prolia, fish oil, amiodarone, Estrace and multivitamin. PQRS: 1. She is positive for osteoarthritis in multiple joints. Denies any rheumatoid arthritis. 2. Height is 5 feet 7 inches, weight is 135, BMI is 21. 3. Vital signs; blood pressure 130/82, pulse is 72, respirations 18, oxygen sat is 95%. 4. Pain score is 4/10. 5. Denies dizziness, does not need assistance with ambulation, has not fallen in the last 3 months. 6. The patient remains on Eliquis and does not take medicine for hypertension. Her opioid therapy is greater than 6 weeks; therefore, an opioid signed contract is on the chart. Risk assessment is low. Functional assessment is . 7. Recreational drug use, she denies. She is not a smoker and does not drink alcohol. [address] [address] PAIN MANAGEMENT CONSULTATION Name: BLANKA CAMEJO Room #: REG [facility] CHILDRENStanley.#: [id number] Admission: 04/11/20 Attend Phys: Erin Patel Discharge: Date of : 44 Report #: [id number] According to the prescription monitoring system, she is due to fill her medications today, filling them in a timely fashion. Her morphine milliequivalent is 75 MME. According to the patient, she has 1 patch left and 3 days of hydrocodone medications left as well. PHYSICAL EXAMINATION: GENERAL: This is alert and orientated 79-year-old female who appears her stated age, placing her pain score at 4/10. She is a good historian. HEENT: Normocephalic and atraumatic. Extraocular eye muscles are intact. She is wearing a mask and glasses. MUSCULOSKELETAL: Tenderness in the lumbosacral region that does radiate down her legs bilaterally. Tenderness in her knees, greater on the right than the left. Lower extremity strength is symmetrical at 5/5. She has a slightly antalgic gait. IMPRESSION: 1. Chronic intractable pain with spondylosis and radiculopathy. 2. Kyphosis with spondylosis. 3. Atrial fibrillation, on Eliquis and amiodarone. 4. Management of high risk medications under terms of written opioid agreement. PLAN: 1. We discussed treatment options with the patient today. The patient feels the patch is adequate in controlling her pain reports doing quite well on the current regimen. We will have Dr. Rogelio Garza send fentanyl 25 mcg patch for today and 4-week supply as well as her hydrocodone 5/325 utilizing 3 tablets a day as needed. 2. The patient reports having 1 patch and 3 days of opioid hydrocodone medication left. We have worked over the last few visits to try and get her medications filled in a timely fashion. I believe that she is finally to that point instead of having half of a prescription left when she comes to the clinic. 3. The patient will return in 2 months and instructed to make appointment when she starts her second box of fentanyl patches. The patient verbalizes understanding. The patient is seen today in collaboration with Dr. Garza. By: [id number] Erin Patel /ross
[2020-04-11 10:59] VITALS: BP 130/82
--- NOTE | 2020-04-11 11:02 | NUR ---
Pain Clinic Assessment: 1. History of Osteoarthritis: HANDS BACK KNEES History of Rheumatoid Arthritis: DENIES 2. Height: 5 ft. 7 in. 170.2 cm. Weight: 135.0 lb. oz. 61.236 kg. Patient's BMI: 21.1 3. Vital Signs: BP: 130/82 Pulse: 72 Resp: 18 Temp: 02 Sat: 95 ECG Mon: 4. Pain Intensity: 4 5. Fall Risk: Dizziness: N Needs help standing or walking: N Fallen in the last 3 months: N Fall risk comments: 6. Patient on Blood Thinner: JMIS 7. History of Hypertension: N 8. Opioid Therapy greater than 6 weeks: Y Opiate Contract Signed: 10/02/15 9. Risk Assessment Tool Provided: LOW RISK 0/3 10. Functional Assessment Tool: 11. Recreational Drug Use: Never Drug Type: Tobacco Use: Never Smoker Tobacco Type: Amount or Packs/day: How Many Years: Alcohol Use: No Frequency: Quant:
== END ==
LOC: PAIN 06:40
PROVIDERS: ATTEND Clinical Nurse Specialist Adult Health
DX: M47.26 Other spondylosis with radiculopathy, lumbar region (principal); G89.4 Chronic pain syndrome; M40.209 Unspecified kyphosis, site unspecified; I48.91 Unspecified atrial fibrillation; Z79.891 Long term (current) use of opiate analgesic; Z79.899 Other long term (current) drug therapy; Z88.8 Allergy status to other drugs, medicaments and biological substances; Z88.0 Allergy status to penicillin

== ENCOUNTER → 2020-06-10 | Outpatient (CLI) | payer OTHER ==
[~2020-06-10] VITALS: Ht 170.2 cm; Wt 62.5 kg
[~2020-06-10] MED LIST changes: +SENOKOT8.6 MG PO; +TOPROL XL100 MG PO; +TRIAMCINOLONE A15 G1 TOP; +TYLENOL325 MG PO
[2020-06-10 12:46] VITALS: BP 143/83
--- NOTE | 2020-06-10 13:08 | NUR ---
Pain Clinic Assessment: 1. History of Osteoarthritis: HANDS BACK KNEES History of Rheumatoid Arthritis: DENIES 2. Height: 5 ft. 7 in. 170.2 cm. Weight: 137.8 lb. oz. 62.506 kg. Patient's BMI: 21.6 3. Vital Signs: BP: 143/83 Pulse: 81 Resp: 14 Temp: 02 Sat: 98 ECG Mon: 4. Pain Intensity: 4 5. Fall Risk: Dizziness: N Needs help standing or walking: N Fallen in the last 3 months: N Fall risk comments: 6. Patient on Blood Thinner: ALAINAQUIS 7. History of Hypertension: N 8. Opioid Therapy greater than 6 weeks: Y Opiate Contract Signed: 10/02/15 9. Risk Assessment Tool Provided: LOW RISK 0 10. Functional Assessment Tool: 11. Recreational Drug Use: Never Drug Type: Tobacco Use: Never Smoker Tobacco Type: Amount or Packs/day: How Many Years: Alcohol Use: No Frequency: Quant:
--- NOTE | 2020-06-11 12:09 | HPC ---
[facility] [address] [address] PAIN MANAGEMENT CONSULTATION Name: BLANKA CAMEJO Room #: REG JESSAFaye Richardson.#: [id number] Admission: 06/10/20 Attend Phys: Erin Patel Discharge: Date of : 44 Report #: [id number] THIS REPORT FOR: cc: Jadon Hong MD, Logan F. MD Hocker,rEin CHRISTIAN ~ DATE OF SERVICE: 06/10/2020 CHIEF COMPLAINT: Chronic low back pain and lumbar radiculopathy. HISTORY OF PRESENT ILLNESS: The patient returns to the pain clinic today for a refill of her medications. Today, she is reporting a pain of 4/10, mostly located in her lower back and radiating down both of her legs. She occasionally has mid thoracic pain as well. Today, she characterizes her pain as a dull, constant, aching discomfort that is worse with prolonged standing. She believes that medication as well as heating pads have been beneficial. She has one fentanyl patch left that is due to be changed tonight and she has hydrocodone pills that will last until the end of the week. She is nervous because she waited so long to make an appointment and she is afraid she will be out. The patient utilizes Senokot and Colace for her opioid-induced constipation and feels this works quite well. She denies daytime somnolence with her current medication regimen. She reports she has had both of her COVID vaccines. They were made available through [facility] where she lives. ALLERGIES: CIPRO, ATORVASTATIN, PENICILLIN, NAPROXEN, TETRACYCLINE, BACTRIM, ZOCOR, GABAPENTIN, ZYMAR, CYMBALTA, ZETIA, AND SOTALOL. MEDICATIONS: Lutein, Senokot, Xyzal, Toprol-XL, Tylenol, hydrocodone 5/325 p.r.n., fentanyl 25 mcg patch, tizanidine, Mucinex, Estrace, multivitamin, PreserVision, Colace, Singulair, iron, hydralazine, Salonpas, Eliquis, Protonix, Prolia, fish oil, and multivitamin. PQRS: 1. She has osteoarthritis affecting her hands, back, and knees. Denies any rheumatoid arthritis. 2. Height is 5 feet 7 inches, weight is 137, BMI is 21. Vital signs 143/83, pulse is 81, respirations 14, and oxygen sat is 98%. Pain score is 4/10. Fall Risk: Denies dizziness, does not need help walking or standing, has not fallen in the last 3 months. The patient is on Eliquis, but denies any medicine for hypertension. Her opioid therapy is greater than 6 weeks; therefore, an opioid signed contract is on the chart. Risk assessment is low. Functional assessment is . Recreational drug use, she denies. She is not a smoker and does not drink alcohol. According to the prescription monitoring system, she is due to fill her [address] [address] PAIN MANAGEMENT CONSULTATION Name: BASHIRBLANKA E Room #: REG MANDY Delgado#: [id number] Admission: 06/10/20 Attend Phys: Erin Patel Discharge: Date of : 44 Report #: [id number] medications. Her MME is 77 according to the CDC guidelines. There is a drug screen in the chart that is appropriate for her medications as well. PHYSICAL EXAMINATION: GENERAL: This is alert and orientated, very pleasant 80-year-old female who appears her stated age, rating her pain score today at 4/10. Her speech is fluent. HEENT: Normocephalic, atraumatic. Extraocular eye muscles are intact. She is wearing a mask as well as glasses. MUSCULOSKELETAL: She has tenderness in her lumbosacral region that radiates to her legs bilaterally, greater on the right than the left, various ecchymosis areas on her hands from her anticoagulation therapy. Lower extremity strength is symmetrical at 5/5 with good sensation from L1-S2. She does have a slightly antalgic gait. IMPRESSION: 1. Chronic intractable pain with spondylosis. 2. Lumbar radiculopathy. 3. Kyphosis with spondylosis. 4. Atrial fibrillation, on anticoagulation therapy. 5. Management of high risk medications under terms of written opioid agreement. We reviewed the fact that opiate medications are being used to provide analgesia adequate to support activities of daily living, not attempting to achieve a specific pain score on the 0-10 Visual Analog Scale. The current opiate medications are providing sufficient analgesia to allow the patient to participate in activities of daily living. The patient is not exhibiting any aberrant behavior suggestive of drug diversion. The patient is not having any adverse reactions to medications. The patient is not suffering from daytime somnolence or mental acuity changes. The patient is managing opiate-induced constipation with appropriate [id number] agents and dietary considerations. The patient was counseled on concern for caution with operating a motor vehicle while using opiate medications. A physical exam was performed and the patient's functional status was evaluated. All patients with back pain were advised against the bed rest greater than 4 days and were advised to return to normal activities. Pain score assessment was noted and the treatment plan was reviewed with the patient. All current medications, both prescribed and OTC were reviewed and reconciled on the electronic medical record. Tobacco screening was accomplished and smoking cessation was advised when indicated. BMI was noted and diet/exercise modification was recommended for all patients following outside normal parameters. I reviewed with the patient today their responsibilities to safeguard prescription medications, reviewed their responsibility to utilize medications [facility] [address] [place] [address] PAIN MANAGEMENT CONSULTATION Name: BLANKA CAMEJO Room #: REG Faye M.R.#: [id number] Admission: 06/10/20 Attend Phys: Erin Patel Discharge: Date of : 44 Report #: [id number] only as prescribed by the physician. They are to seek and receive pain medications only from 1 physician group ( [facility]). They are to use 1 pharmacy and keep the clinic informed if they change pharmacies. Their responsibilities include making followup visits in a timely fashion and to avoid abrupt discontinuation of medication usage. Their responsibilities further include bringing their medications (bottles from the pharmacy with residual pills) to the visit for possible confirmation of pill counts and the patient understands it is their responsibility to submit to random drug screens to ensure both that the medications prescribed are present, and that no other controlled substances are present. All prescriptions provided today were generated electronically. PLAN: We discussed treatment options with the patient today. The patient is worried about running out of her opioid medications. I explained to her that she has 3 days left of her fentanyl patch. Hopefully, her pharmacy will deliver her meds in a timely fashion. I explained to her that she could call to come a few days early, though her pharmacy will not be able to release her medications earlier than 28 days. I spent some more minutes reassuring her that she will not go through withdrawal since she still currently has her hydrocodone and fentanyl patch on. 2.The patient has had both her COVID vaccines that were available through her assisted living facility where she lives. She is very thankful and hopeful that she will be able to visit more of her family now that she has been vaccinated. 3.Dr. Rogelio Garza collaborated care today and sent 2 months of her medication to her [facility] with release dates of 06/10/2020 and 07/08/2020. Time spent with the patient today in consultation and physical exam of 12 minutes. Prior to her appointment time today, I spent reviewing the chart and pertinent medical documentation including physician notes. Time also spent reviewing the prescription monitoring system, side effects of medications related to care, sending scripts electronically with collaborating physician of Dr. Garza and documenting at least 14 minutes. Total time spent 28 minutes. <ELECTRONICALLY SIGNED> By: Erin Patel 06/11/20 1209 [id number] Erin Patel /ross
== END ==
LOC: PAIN 06:49
PROVIDERS: ATTEND Clinical Nurse Specialist Adult Health
DX: M54.16 Radiculopathy, lumbar region (principal); M47.9 Spondylosis, unspecified; I48.91 Unspecified atrial fibrillation; M40.299 Other kyphosis, site unspecified; F11.20 Opioid dependence, uncomplicated; Z79.899 Other long term (current) drug therapy; Z88.8 Allergy status to other drugs, medicaments and biological substances

== ENCOUNTER → 2020-07-25 | Outpatient (CLI) | payer OTHER ==
[~2020-07-25] VITALS: Ht 170.2 cm; Wt 63.3 kg
[2020-07-25 10:22] VITALS: BP 140/77
--- NOTE | 2020-07-25 10:30 | NUR ---
Pain Clinic Assessment: 1. History of Osteoarthritis: HANDS BACK KNEES History of Rheumatoid Arthritis: DENIES 2. Height: 5 ft. 7 in. 170.2 cm. Weight: 139.6 lb. oz. 63.322 kg. Patient's BMI: 21.9 3. Vital Signs: BP: 140/77 Pulse: 76 Resp: 14 Temp: 02 Sat: 97 ECG Mon: 4. Pain Intensity: 2-3 5. Fall Risk: Dizziness: N Needs help standing or walking: N Fallen in the last 3 months: N Fall risk comments: 6. Patient on Blood Thinner: ROSA 7. History of Hypertension: N 8. Opioid Therapy greater than 6 weeks: Y Opiate Contract Signed: 10/02/15 9. Risk Assessment Tool Provided: LOW RISK 0 10. Functional Assessment Tool: 11. Recreational Drug Use: Never Drug Type: Tobacco Use: Never Smoker Tobacco Type: Amount or Packs/day: How Many Years: Alcohol Use: No Frequency: Quant:
== END ==
LOC: PAIN 09:15
PROVIDERS: ATTEND Clinical Nurse Specialist Adult Health
DX: G89.29 Other chronic pain (principal); M47.26 Other spondylosis with radiculopathy, lumbar region; M40.299 Other kyphosis, site unspecified; M17.0 Bilateral primary osteoarthritis of knee; M19.042 Primary osteoarthritis, left hand; M19.041 Primary osteoarthritis, right hand; I48.91 Unspecified atrial fibrillation; Z88.8 Allergy status to other drugs, medicaments and biological substances; Z79.891 Long term (current) use of opiate analgesic; Z79.01 Long term (current) use of anticoagulants; Z79.899 Other long term (current) drug therapy

== ENCOUNTER → 2020-09-12 | Outpatient (CLI) | payer OTHER ==
[~2020-09-12] VITALS: Ht 170.2 cm; Wt 61.0 kg
[~2020-09-12] MED LIST changes: +NEURONTIN100 MG PO
[2020-09-12 09:50] VITALS: BP 125/67
--- NOTE | 2020-09-12 09:59 | NUR ---
Pain Clinic Assessment: 1. History of Osteoarthritis: HANDS BACK KNEES History of Rheumatoid Arthritis: DENIES 2. Height: 5 ft. 7 in. 170.2 cm. Weight: 134.4 lb. oz. 60.963 kg. Patient's BMI: 21.0 3. Vital Signs: BP: 125/67 Pulse: 76 Resp: 14 Temp: 02 Sat: 96 ECG Mon: 4. Pain Intensity: 3 5. Fall Risk: Dizziness: N Needs help standing or walking: N Fallen in the last 3 months: N Fall risk comments: 6. Patient on Blood Thinner: ROSA 7. History of Hypertension: N 8. Opioid Therapy greater than 6 weeks: Y Opiate Contract Signed: 10/02/15 9. Risk Assessment Tool Provided: LOW RISK 0 10. Functional Assessment Tool: 11. Recreational Drug Use: Never Drug Type: Tobacco Use: Never Smoker Tobacco Type: Amount or Packs/day: How Many Years: Alcohol Use: No Frequency: Quant:
== END ==
LOC: PAIN 07:07
PROVIDERS: ATTEND Clinical Nurse Specialist Adult Health
DX: M47.26 Other spondylosis with radiculopathy, lumbar region (principal); I48.91 Unspecified atrial fibrillation; Z79.01 Long term (current) use of anticoagulants; Z79.891 Long term (current) use of opiate analgesic; Z79.899 Other long term (current) drug therapy

== ENCOUNTER → 2020-11-13 | Outpatient (CLI) | payer OTHER ==
[~2020-11-13] VITALS: Ht 170.2 cm; Wt 61.4 kg
[~2020-11-13] MED LIST changes: +TRAMADOL 50 MG50 MG PO
[2020-11-13 10:45] VITALS: BP 156/82
--- NOTE | 2020-11-13 10:52 | NUR ---
Pain Clinic Assessment: 1. History of Osteoarthritis: HANDS BACK KNEES History of Rheumatoid Arthritis: DENIES 2. Height: 5 ft. 7 in. 170.2 cm. Weight: 135.4 lb. oz. 61.417 kg. Patient's BMI: 21.2 3. Vital Signs: BP: 156/82 Pulse: 68 Resp: 14 Temp: 02 Sat: 97 ECG Mon: 4. Pain Intensity: 4 5. Fall Risk: Dizziness: N Needs help standing or walking: N Fallen in the last 3 months: N Fall risk comments: 6. Patient on Blood Thinner: ALAINAQUIS 7. History of Hypertension: N 8. Opioid Therapy greater than 6 weeks: Y Opiate Contract Signed: 10/02/15 9. Risk Assessment Tool Provided: LOW RISK 0 10. Functional Assessment Tool: 11. Recreational Drug Use: Never Drug Type: Tobacco Use: Never Smoker Tobacco Type: Amount or Packs/day: How Many Years: Alcohol Use: No Frequency: Quant:
== END ==
LOC: PAIN 07:11
PROVIDERS: ATTEND Clinical Nurse Specialist Adult Health
DX: G89.29 Other chronic pain (principal); M47.26 Other spondylosis with radiculopathy, lumbar region; M40.299 Other kyphosis, site unspecified; I48.91 Unspecified atrial fibrillation; M25.551 Pain in right hip; Z98.890 Other specified postprocedural states; Z88.8 Allergy status to other drugs, medicaments and biological substances; Z79.899 Other long term (current) drug therapy; Z79.891 Long term (current) use of opiate analgesic

== ENCOUNTER → 2021-01-16 | Outpatient (CLI) | payer OTHER ==
[~2021-01-16] VITALS: Ht 170.2 cm; Wt 60.6 kg
[~2021-01-16] MED LIST changes: +CRAMPS; +FENTANYL1 EACH TRANSDERM
[2021-01-16 11:17] VITALS: BP 147/90
--- NOTE | 2021-01-16 11:27 | NUR ---
Pain Clinic Assessment: 1. History of Osteoarthritis: HANDS BACK KNEES History of Rheumatoid Arthritis: DENIES 2. Height: 5 ft. 7 in. 170.2 cm. Weight: 133.6 lb. oz. 60.600 kg. Patient's BMI: 20.9 3. Vital Signs: BP: 147/90 Pulse: 89 Resp: 18 Temp: 02 Sat: 90 ECG Mon: 4. Pain Intensity: 3 5. Fall Risk: Dizziness: N Needs help standing or walking: N Fallen in the last 3 months: Y Fall risk comments: 6. Patient on Blood Thinner: ALAINAQUIS 7. History of Hypertension: N 8. Opioid Therapy greater than 6 weeks: Y Opiate Contract Signed: 10/02/15 9. Risk Assessment Tool Provided: LOW RISK 0 10. Functional Assessment Tool: 11. Recreational Drug Use: Never Drug Type: Tobacco Use: Never Smoker Tobacco Type: Amount or Packs/day: How Many Years: Alcohol Use: No Frequency: Quant:
== END ==
LOC: PAIN 06:52
PROVIDERS: ATTEND Clinical Nurse Specialist Adult Health
DX: G89.29 Other chronic pain (principal); M47.26 Other spondylosis with radiculopathy, lumbar region; M40.299 Other kyphosis, site unspecified; I48.91 Unspecified atrial fibrillation; Z88.0 Allergy status to penicillin; Z88.1 Allergy status to other antibiotic agents; Z88.8 Allergy status to other drugs, medicaments and biological substances; Z79.899 Other long term (current) drug therapy; Z79.891 Long term (current) use of opiate analgesic

== ENCOUNTER → 2021-03-24 | Outpatient (CLI) | payer OTHER ==
[~2021-03-24] VITALS: Ht 170.2 cm; Wt 59.1 kg
[2021-03-24 10:06] VITALS: BP 155/70
--- NOTE | 2021-03-24 10:32 | NUR ---
Pain Clinic Assessment: 1. History of Osteoarthritis: HANDS BACK KNEES History of Rheumatoid Arthritis: DENIES 2. Height: 5 ft. 7 in. 170.2 cm. Weight: 130.4 lb. oz. 59.149 kg. Patient's BMI: 20.4 3. Vital Signs: BP: 155/70 Pulse: 84 Resp: 14 Temp: 02 Sat: 99 ECG Mon: 4. Pain Intensity: 5 5. Fall Risk: Dizziness: N Needs help standing or walking: N Fallen in the last 3 months: N Fall risk comments: 6. Patient on Blood Thinner: ALAINAQUIS 7. History of Hypertension: N 8. Opioid Therapy greater than 6 weeks: Y Opiate Contract Signed: 10/02/15 9. Risk Assessment Tool Provided: LOW RISK 0 10. Functional Assessment Tool: 11. Recreational Drug Use: Never Drug Type: Tobacco Use: Never Smoker Tobacco Type: Amount or Packs/day: How Many Years: Alcohol Use: No Frequency: Quant:
== END ==
LOC: PAIN 08:53
PROVIDERS: ATTEND Clinical Nurse Specialist Adult Health
DX: G89.29 Other chronic pain (principal); M47.26 Other spondylosis with radiculopathy, lumbar region; I48.91 Unspecified atrial fibrillation; Z79.01 Long term (current) use of anticoagulants; Z88.0 Allergy status to penicillin; Z88.8 Allergy status to other drugs, medicaments and biological substances; Z79.899 Other long term (current) drug therapy

== ENCOUNTER → 2021-05-19 | Outpatient (CLI) | payer OTHER ==
[~2021-05-19] VITALS: Ht 170.2 cm; Wt 60.8 kg
[~2021-05-19] MED LIST changes: +CALCIUM + VITA1 EACH PO; +CALCIUM 600 +1 EAC8 PO; +K-MG CITRATE 91 EACH PO
[2021-05-19 10:05] VITALS: BP 143/51
--- NOTE | 2021-05-19 10:27 | NUR ---
Pain Clinic Assessment: 1. History of Osteoarthritis: HANDS BACK KNEES History of Rheumatoid Arthritis: DENIES 2. Height: 5 ft. 7 in. 170.2 cm. Weight: 134.0 lb. oz. 60.782 kg. Patient's BMI: 21.0 3. Vital Signs: BP: 143/51 Pulse: 62 Resp: 16 Temp: 02 Sat: 95 ECG Mon: 4. Pain Intensity: 4 5. Fall Risk: Dizziness: N Needs help standing or walking: N Fallen in the last 3 months: N Fall risk comments: 6. Patient on Blood Thinner: ROSA 7. History of Hypertension: N 8. Opioid Therapy greater than 6 weeks: Y Opiate Contract Signed: 10/02/15 9. Risk Assessment Tool Provided: LOW RISK 0 10. Functional Assessment Tool: 11. Recreational Drug Use: Never Drug Type: Tobacco Use: Never Smoker Tobacco Type: Amount or Packs/day: How Many Years: Alcohol Use: No Frequency: Quant:
== END ==
LOC: PAIN 08:19
PROVIDERS: ATTEND Clinical Nurse Specialist Adult Health
DX: M47.23 Other spondylosis with radiculopathy, cervicothoracic region (principal); M54.50 Low back pain, unspecified; G89.29 Other chronic pain; I48.91 Unspecified atrial fibrillation; M40.209 Unspecified kyphosis, site unspecified; Z79.899 Other long term (current) drug therapy; Z88.8 Allergy status to other drugs, medicaments and biological substances